=== PATIENT | male | born 1935 | race Hispanic/Latino ===

== ENCOUNTER 2018-08-28 08:24 | Day surgery (SDC) | payer MEDICARE ==
[2018-08-28 08:24] VITALS: BMI 31.6
[2018-08-28 08:41] VITALS: RESP 20
[2018-08-28] MEDS ORDERED: Sodium Chloride 0.9% 1,000 ML IV ONE (09:23)
[2018-08-28] MEDS ORDERED: Sodium Chloride 0.9% 1,000 ML ONE (09:39)
[2018-08-28 10:09] LABS: BASO % 0.5 % (0.0-2.0); EOS # 0.2 K/uL (0.0-0.7); EOS % 3.8 % (0.0-4.0); HEMOGLOBIN 10.7 g/dL (12.0-18.0); LYMPH # 1.2 K/uL (1.0-4.3); MEAN CORPUSCULAR HEMOGLOBIN 34.9 pg (27.0-31.0); MEAN CORPUSCULAR HGB CONC 32.6 g/dL (33.0-37.0); MEAN PLATELET VOLUME 7.6 fL (7.2-11.7); MONO # 0.5 K/uL (0.0-0.8); MONO % 7.7 % (0.0-10.0); NRBC % 0.1 % (0.0-2.0); RBC 3.07 Mil/uL (4.40-5.90); RED CELL DISTRIBUTION WIDTH 14.1 % (11.5-14.5); WHITE BLOOD COUNT 5.9 K/uL (4.8-10.8)
[2018-08-28 10:12] LABS: SQUAMOUS EPITHIAL 1 /hpf (0-5); URINE BILIRUBIN NEGATIVE (NEGATIVE); URINE BLOOD 3+ (NEGATIVE); URINE CLARITY Hazy (Clear); URINE COLOR Yellow (YELLOW); URINE GLUCOSE (UA) NORMAL (Normal); URINE LEUKOCYTE ESTERASE TRACE Leu/uL (Negative); URINE PROTEIN 1+ mg/dL (NEGATIVE); URINE UROBILINOGEN NORMAL mg/dL (0.2-1.0)
[2018-08-28 10:14] LABS: MEAN CELL VOLUME 107.2 fL (80.0-94.0)
[2018-08-28 10:18] LABS: INR 1.1; PROTHROMBIN TIME 11.5 SECONDS (9.7-12.2)
[2018-08-28 10:27] LABS: ALB/GLOB RATIO 1.4 (1.0-2.1); ALBUMIN 4.1 g/dL (3.5-5.0); CALCIUM 9.4 mg/dl (8.6-10.4)
[2018-08-28] MEDS ORDERED: Iohexol 300 100 ML IJ ONE (10:33)
[2018-08-28 10:36] LABS: CK-MB 1.11 ng/mL (0.0-3.38); TROPONIN I 0.037 ng/mL (0.00-0.120)
[2018-08-28 11:25] VITALS: PULSE 86; TEMP 97.9; O2SAT 98
--- NOTE | 2018-08-28 11:40 | RAD ---
Date of service: 08/28/2018 HISTORY: Shortness of breath COMPARISON: 05/29/2016. TECHNIQUE: Chest PA and lateral FINDINGS: LINES AND TUBES: None. LUNG AND PLEURA: The lungs are well inflated. No pleural effusion or pneumothorax. HEART AND MEDIASTINUM: Persistent moderate cardiomegaly. Status post CABG. There are aortic atherosclerotic calcifications present. The hilar and mediastinal contours are within normal limits. SKELETAL STRUCTURES: The bony structures are within normal limits for the patient's age. VISUALIZED UPPER ABDOMEN: Normal. OTHER FINDINGS: None. IMPRESSION: No active pulmonary disease.
[2018-08-28] MEDS ORDERED: Iohexol 240 (50 ml) ONE (12:06)
[2018-08-28] MEDS ORDERED: Lidocaine 2% Jelly (Uro-Jet) ONE (12:06)
--- NOTE | 2018-08-28 12:11 | C.PDOC ---
History Of Present Illness 83 year old male is sent to the ED by Dr. Capellan for evaluation of hematuria. Patient reports history of intermittent hematuria for the past month. He states the most recent episode developed last week and have been "pretty profuse" over the past few days. Patient denies fever, chills, nausea, vomiting, back pain, recent catheter insertion or procedures, known trauma/injuries. Time Seen by Provider: 08/28/18 08:33 Chief Complaint (Nursing): Male Genitourinary History Per: Patient History/Exam Limitations: no limitations Onset/Duration Of Symptoms: Intermittent Episodes, Other (one week ) Current Symptoms Are (Timing): Worse Quality Of Discomfort: "Pain" Associated Symptoms: Urinary Symptoms (hematuria ). denies: Nausea, Vomiting, Back Pain Additional History Per: Patient Past Medical History Reviewed: Historical Data, Nursing Documentation, Vital Signs Vital Signs: Last Vital Signs Temp 97.9 F 08/28/18 11:23 Pulse 86 08/28/18 11:23 Resp 20 08/28/18 08:30 BP 170/91 H 08/28/18 11:23 Pulse Ox 98 08/28/18 11:23 - Medical History PMH: HTN, Hypercholesterolemia Denies: Chronic Kidney Disease Surgical History: CABG - [facility] Procedures CYSTOSCOPY NEC (03/31/14) RETROGRADE PYELOGRAM (03/31/14) TU DESTRUC BLADD LES NEC (03/31/14) URETERAL CATHETERIZATION (03/31/14) Family History: States: Unknown Family Hx - Social History Hx Tobacco Use: No Hx Alcohol Use: Yes Hx Substance Use: No - Immunization History Hx Tetanus Toxoid Vaccination: No Hx Influenza Vaccination: No Hx Pneumococcal Vaccination: No Review Of Systems Constitutional: Negative for: Fever, Chills Gastrointestinal: Negative for: Nausea, Vomiting Genitourinary: Positive for: Hematuria Musculoskeletal: Negative for: Back Pain Physical Exam - Physical Exam Appears: Non-toxic, No Acute Distress Skin: Normal Color, Warm, Dry Oral Mucosa: Moist Neck: Supple Gastrointestinal/Abdominal: Soft, No Tenderness, No Guarding, No Rebound Back: No CVA Tenderness Extremity: Normal ROM, Capillary Refill (less than 2 seconds) Neurological/Psych: Normal Speech, Normal Cognition ED Course And Treatment - Laboratory Results Result Diagrams: 08/28/18 09:25 08/28/18 09:25 Lab Results: PT 11.5 SECONDS (9.7-12.2) 08/28/18 09:25 INR 1.1 08/28/18 09:25 APTT 31 SECONDS (21-34) 08/28/18 09:25 Troponin I 0.0370 ng/mL (0.00-0.120) 08/28/18 09:25 NT-Pro-B Natriuret Pep 1330 pg/mL (0-900) H 08/28/18 09:25 Total Bilirubin 0.5 mg/dL (0.2-1.3) 08/28/18 09:25 AST 31 U/L (17-59) 08/28/18 09:25 ALT 14 U/L (21-72) L D 08/28/18 09:25 Alkaline Phosphatase 91 U/L (38-126) 08/28/18 09:25 Total Protein 7.0 g/dL (6.3-8.3) 08/28/18 09:25 Albumin 4.1 g/dL (3.5-5.0) 08/28/18 09:25 Globulin 2.9 gm/dL (2.2-3.9) 08/28/18 09:25 Albumin/Globulin Ratio 1.4 (1.0-2.1) 08/28/18 09:25 Urine Color Yellow (YELLOW) 08/28/18 09:25 Urine Clarity Hazy (Clear) 08/28/18 09:25 Urine pH 5.0 (5.0-8.0) 08/28/18 09:25 Ur Specific [place] 1.016 (1.003-1.030) 08/28/18 09:25 Urine Protein 1+ mg/dL (NEGATIVE) H 08/28/18 09:25 Urine Glucose (UA) Normal mg/dL (Normal) 08/28/18 09:25 Urine Ketones Negative mg/dL (NEGATIVE) 08/28/18 09:25 Urine Blood 3+ (NEGATIVE) H 08/28/18 09:25 Urine Nitrate Negative (NEGATIVE) 08/28/18 09:25 Urine Bilirubin Negative (NEGATIVE) 08/28/18 09:25 Urine Urobilinogen Normal mg/dL (0.2-1.0) 08/28/18 09:25 Ur Leukocyte Esterase Trace Sol/uL (Negative) 08/28/18 09:25 Urine WBC (Auto) 30 /hpf (0-5) H 08/28/18 09:25 Urine RBC (Auto) 598 /hpf (0-3) H 08/28/18 09:25 Ur Squamous Epith Cells 1 /hpf (0-5) 08/28/18 09:25 ECG: Interpreted By Me, Viewed By Me ECG Rhythm: Sinus Rhythm, R BBB Interpretation Of ECG: SR@65/min, sinus arrythmia, incomplete RBBB, no acute ST- T changes Rate From EC O2 Sat by Pulse Oximetry: 98 (on RA) Pulse Ox Interpretation: Normal - Radiology CXR: Read By Radiologist CXR Interpretation: Yes: No Acute Disease - CT Scan/US CT A/P Other Rad Studies (CT/US): Radiology Report Reviewed CT/US Interpretation: Creator : Yomaira Mendez. Dictator : Denis Sahni MD. Frame Cleaner : Patient Access Manager : Denis Sahni MD. Approver2 : Report Date : 08/28/2018 12:06:16. My Comment : . Date of service: 08/28/2018. PROCEDURE: CT Abdomen and Pelvis without intravenous contrast. HISTORY: abd. pain, hematuria. COMPARISON: 05/30/2016. TECHNIQUE: Technique. Contrast dose: Radiation dose: Total exam DLP = 1057.67 mGy-cm. This CT exam was performed using one or more of the following dose reduction techniques: Automated exposure control, adjustment of the mA and/or kV according to patient size, and/or use of iterative reconstruction technique. FINDINGS: LOWER THORAX: Unremarkable. LIVER: Unremarkable. No gross lesion or ductal dilatation. GALLBLADDER AND BILE DUCTS: Unremarkable. PANCREAS: Unremarkable. No gross lesion or ductal dilatation. SPLEEN: Unremarkable. ADRENALS: Unremarkable. No mass. KIDNEYS AND URETERS: Distended left renal pelvis and proximal left ureter with abundant internal hemorrhagic material. VASCULATURE: Unremarkable. No aortic aneurysm. No aortic atherosclerotic calcification or mural plaque present. BOWEL: Colonic diverticulosis. No obstruction. No gross mural thickening. APPENDIX: Unremarkable. Normal appendix. PERITONEUM: Unremarkable. No free fluid. No free air. LYMPH NODES: Unremarkable. No enlarged lymph nodes. BLADDER: Unremarkable. REPRODUCTIVE: Brachytherapy seeds in the prostate gland. BONES: No acute fracture. OTHER FINDINGS: None. IMPRESSION: Distended left renal pelvis and proximal left ureter with abundant internal hemorrhagic material. Progress Note: Bloodwork, urinalysis, CXR, EKG, CT A/P ordered and reviewed. IV fluids given. Case discussed with and admission to OR request. NPO. Disposition - Disposition Disposition: HOSPITALIZED Disposition Time: 11:00 Condition: STABLE - Clinical Impression Clinical Impression: Hematuria - PA / COUNTY MANAGER / Resident Statement MD/DO has reviewed & agrees with the documentation as recorded. - Scribe Statement The provider has reviewed the documentation as recorded by the Scribe (Sagrario Neal) All medical record entries made by the Scribe were at my direction and personally dictated by me. I have reviewed the chart and agree that the record accurately reflects my personal performance of the history, physical exam, medical decision making, and the department course for this patient. I have also personally directed, reviewed, and agree with the discharge instructions and disposition.
[2018-08-28] MEDS ORDERED: Ciprofloxacin 400mg/200ml D5W 0 MG/0 ML BAG IVPB ONE (12:16)
--- NOTE | 2018-08-28 12:26 | CT ---
Date of service: 08/28/2018 PROCEDURE: CT Abdomen and Pelvis without intravenous contrast HISTORY: abd. pain, hematuria COMPARISON: 05/30/2016 TECHNIQUE: Technique. Contrast dose: Radiation dose: Total exam DLP = 1057.67 mGy-cm. This CT exam was performed using one or more of the following dose reduction techniques: Automated exposure control, adjustment of the mA and/or kV according to patient size, and/or use of iterative reconstruction technique. FINDINGS: LOWER THORAX: Unremarkable. LIVER: Unremarkable. No gross lesion or ductal dilatation. GALLBLADDER AND BILE DUCTS: Unremarkable. PANCREAS: Unremarkable. No gross lesion or ductal dilatation. SPLEEN: Unremarkable. ADRENALS: Unremarkable. No mass. KIDNEYS AND URETERS: Distended left renal pelvis and proximal left ureter with abundant internal hemorrhagic material. VASCULATURE: Unremarkable. No aortic aneurysm. No aortic atherosclerotic calcification or mural plaque present. BOWEL: Colonic diverticulosis. No obstruction. No gross mural thickening. APPENDIX: Unremarkable. Normal appendix. PERITONEUM: Unremarkable. No free fluid. No free air. LYMPH NODES: Unremarkable. No enlarged lymph nodes. BLADDER: Unremarkable. REPRODUCTIVE: Brachytherapy seeds in the prostate gland. BONES: No acute fracture. OTHER FINDINGS: None. IMPRESSION: Distended left renal pelvis and proximal left ureter with abundant internal hemorrhagic material.
[2018-08-28 13:51] VITALS: BP 160/67
--- NOTE | 2018-08-31 01:07 | HP ---
HISTORY OF PRESENT ILLNESS: The patient is an 83-year-old male with hematuria. The patient is in otherwise fair health. The patient has history of bladder cancer diagnosed in 2013. The patient had previous transurethral resection of bladder cancer. The patient did not have regular followup at that time. He subsequently developed hematuria again. He had no recurrence of bladder cancer in 2016. The patient has not been seen since 2017. The patient presented this week with gross hematuria. He reports intermittent hematuria for the past six months. The patient reports no flank pain. No nausea or vomiting. The patient has had normal appetite. He reports normal bowel movements. No recent weight loss. PAST MEDICAL HISTORY: The patient has significant past urologic as well as past cardiac history as follows. The patient has history of previous prostate seed implantation and external beam radiotherapy performed in 2004, for prostate carcinoma. The patient has history of previous urinary tract infection as well. The patient has history of aortic valve replacement, using valve, not a mechanical valve. The patient has history of coronary artery bypass graft and aortic valve replacement in 2011. The patient reports occasional dysuria. No fever or rigors. The patient reports that he has a history of possible kidney stones 20 years ago. The patient presented to the emergency room this morning. He is admitted for further evaluation of therapy regarding his hematuria. MEDICATIONS: Include meloxicam and Ativan. SOCIAL HISTORY: The patient does not smoke. He reports that he stopped smoking approximately 50 years ago. The patient reports urinary incontinence as well. No recent fever or rigors. The patient has history of chronic kidney disease. He reports his creatinines have been over 3. The patient reports no chest pain. No shortness of breath. The patient has had two-vessel coronary artery bypass. The patient lives with his son. [place] a [place]. The patient reports that since yesterday, he has had numerous difficult social problems including his sons being arrested, his car being impounded. The patient does not drink alcohol. The patient is retired. PHYSICAL EXAMINATION: GENERAL: The patient is a well-developed, well-nourished elderly male. The patient is awake and alert. VITAL SIGNS: Blood pressure is 110/80. LUNGS: Clear to percussion and auscultation. HEART: Regular rhythm, normal S1 and S2. ABDOMEN: Soft, nondistended. There is mild suprapubic tenderness. No mass or organomegaly. BACK: No CVA tenderness. GENITALIA: Without inflammation. LABORATORY DATA: See attached reports. Anemia is noted. Azotemia is noted. CAT scan reports left hydronephrosis with hematuria. IMPRESSION: An 83-year-old male with gross hematuria. Etiology of the hematuria may be related to neoplasia, infection, and/or urolithiasis. The patient has cardiac disease as noted above. RECOMMENDATION AND PLAN: Urine culture. Urine cytology CT scan. Cystoscopy. ADDENDUM: The patient was prepared for and brought to the holding area of the operating room for planned cystoscopy. However, due to the patient's medical condition, the cystoscopy is postponed. The patient requires further cardiologic evaluation. The case has been discussed with the anesthesiologist. The patient will need further medical and cardiology evaluation prior to the procedure. The patient reports that the hematuria stopped this morning. If the bleeding returns, the patient will require cystoscopy on an emergent basis. Further therapy to follow according to the patient's clinical course. Karma Capellan MD
== END 2018-08-28 14:19 | disposition home or self-care (01) ==
LOC: C.ER 08:24 → C.SDS 11:13
PROVIDERS: ATTEND Urology
DX: Z53.8 Procedure and treatment not carried out for other reasons (principal); R31.0 Gross hematuria; Z85.46 Personal history of malignant neoplasm of prostate; Z87.891 Personal history of nicotine dependence; N18.9 Chronic kidney disease, unspecified; Z79.899 Other long term (current) drug therapy; I12.9 Hypertensive chronic kidney disease with stage 1 through stage 4 chronic kidney disease, or unspecified chronic kidney disease; E78.00 Pure hypercholesterolemia, unspecified
CPT/HCPCS: 36415; 71046; 74176; 80053; 81001; 82550; 82553; 83880; 84484; 85025; 85610; 85730; 87040; 87086; 96360; 99285; J7030

== ENCOUNTER → 2018-09-16 | Day surgery (SDC) | payer MEDICARE ==
[~2018-09-16] MED LIST: Sodium Chloride 0.9% 1,000 ML IV SCH
[2018-09-16 07:24] VITALS: BMI 31.6
--- NOTE | 2018-09-16 07:48 | C.PDOC ---
History Of Present Illness 83 y/o male is sent by Dr. Cristhian Capellan for a procedure. Patient states hes been having blood in his urine for the past [address] Capellan thinks he might have cancer and might need cystoscopy. Patient has no other medical complaints at this time. Time Seen by Provider: 09/16/18 07:31 Chief Complaint (Nursing): Male Genitourinary History Per: Patient History/Exam Limitations: no limitations Onset/Duration Of Symptoms: Days Current Symptoms Are (Timing): Still Present Past Medical History Reviewed: Historical Data, Nursing Documentation, Vital Signs Vital Signs: Last Vital Signs Temp 97.6 F 09/16/18 07:28 Pulse 89 09/16/18 07:28 Resp 18 09/16/18 07:28 BP 184/91 H 09/16/18 07:28 Pulse Ox 98 09/16/18 07:28 - Medical History PMH: HTN, Hypercholesterolemia Denies: Chronic Kidney Disease Surgical History: CABG - [facility] Procedures CYSTOSCOPY NEC (03/31/14) RETROGRADE PYELOGRAM (03/31/14) TU DESTRUC BLADD LES NEC (03/31/14) URETERAL CATHETERIZATION (03/31/14) Family History: States: No Known Family Hx - Social History Hx Tobacco Use: No Hx Alcohol Use: Yes Hx Substance Use: No - Immunization History Hx Tetanus Toxoid Vaccination: No Hx Influenza Vaccination: No Hx Pneumococcal Vaccination: No Review Of Systems Except As Marked, All Systems Reviewed And Found Negative. Constitutional: Negative for: Fever, Chills Gastrointestinal: Negative for: Nausea, Vomiting Genitourinary: Positive for: Hematuria Musculoskeletal: Negative for: Back Pain Physical Exam - Physical Exam Appears: Non-toxic, No Acute Distress Skin: Warm, Dry Head: Atraumatic, Normacephalic Eye(s): bilateral: Normal Inspection Oral Mucosa: Moist Neck: Supple Cardiovascular: Rhythm Regular, No Murmur Respiratory: Normal Breath Sounds, No Rales, No Rhonchi, No Wheezing Extremity: Bilateral: Atraumatic, Normal ROM Neurological/Psych: Oriented x3, Normal Speech ED Course And Treatment - Laboratory Results Result Diagrams: 09/16/18 08:07 09/16/18 08:07 Lab Interpretation: Normal ECG: Interpreted By Ar ECG Rhythm: Sinus Rhythm, Nonspecific Changes ECG Interpretation: No Acute Changes Rate From EC O2 Sat by Pulse Oximetry: 98 (RA) Pulse Ox Interpretation: Normal - Radiology CXR: Interpreted by Me CXR Interpretation: Yes: No Acute Disease - Other Rad CXR X-Ray: Read By Radiologist Interpretation: FINDINGS: LUNGS: Mild left basilar atelectasis/infiltrate. 5 mm left upper lobe calcified granuloma verses bone island. Please note that chest x-ray has limited sensitivity for the detection of pulmonary masses. PLEURA: No significant pleural effusion identified. No definite pneumothorax . CARDIOVASCULAR: Median sternotomy wires. Borderline cardiomegaly. Ectatic aorta with dense atherosclerotic calcification present. OSSEOUS STRUCTURES: Degenerative changes. VISUALIZED UPPER ABDOMEN: Mild elevation of the right hemidiaphragm. OTHER FINDINGS: None. IMPRESSION: Borderline cardiomegaly. Ectatic aorta with atherosclerotic calcification present. Mild left basilar atelectasis/infiltrate. Progress Note: Treated with IVF NSS. Case discussed and patient evaluated by Dr Capellan whp request discharge and will re-schedule OR Reassessment Condition: Unchanged - Physician Consult Information Physician Contacted: Karma Capellan Outcome Of Conversation: discharge Medical Decision Making Medical Decision Making: Plan: --EKG --Labs --Chest XR --UA --IV fluids 1L Disposition Discussed With Dr.: Karma Capellan Doctor Will See Patient In The: Office Counseled Patient/Family Regarding: Studies Performed, Diagnosis, Need For Followup - Disposition Disposition: HOME/ ROUTINE Disposition Time: 15:00 Condition: STABLE - POA Present On Arrival: None - Clinical Impression Clinical Impression: Hematuria - PA / IRRIGATIONIST DESIGNER / Resident Statement MD/DO has reviewed & agrees with the documentation as recorded. - Scribe Statement The provider has reviewed the documentation as recorded by the Scribmare Shea All medical record entries made by the Cely were at my direction and personally dictated by me. I have reviewed the chart and agree that the record accurately reflects my personal performance of the history, physical exam, medical decision making, and the department course for this patient. I have also personally directed, reviewed, and agree with the discharge instructions and disposition.
[2018-09-16 08:21] LABS: BASO # 0.1 K/uL (0.0-0.2); BASO % 0.9 % (0.0-2.0); EOS # 0.3 K/uL (0.0-0.7); EOS % 4.6 % (0.0-4.0); HEMOGLOBIN 12.3 g/dL (12.0-18.0); LYMPH % 18.6 % (20.0-40.0); MEAN CELL VOLUME 107.7 fL (80.0-94.0); MEAN CORPUSCULAR HEMOGLOBIN 36.6 pg (27.0-31.0); MEAN PLATELET VOLUME 7.8 fL (7.2-11.7); MONO # 0.4 K/uL (0.0-0.8); NEUT # 3.8 K/uL (1.8-7.0); NEUT % 68.9 % (50.0-75.0); NRBC % 0.1 % (0.0-2.0); RBC 3.35 Mil/uL (4.40-5.90); RED CELL DISTRIBUTION WIDTH 14.8 % (11.5-14.5); WHITE BLOOD COUNT 5.5 K/uL (4.8-10.8)
[2018-09-16 08:25] LABS: URINE BACTERIA OCC (<OCC); URINE BILIRUBIN NEGATIVE (NEGATIVE); URINE BLOOD 3+ (NEGATIVE); URINE CLARITY Hazy (Clear); URINE COLOR Amber (YELLOW); URINE GLUCOSE (UA) NORMAL (Normal); URINE LEUKOCYTE ESTERASE NEG Leu/uL (Negative); URINE PROTEIN 1+ mg/dL (NEGATIVE); URINE UROBILINOGEN NORMAL mg/dL (0.2-1.0)
[2018-09-16 08:26] LABS: PROTHROMBIN TIME 11.4 SECONDS (9.7-12.2)
[2018-09-16 08:41] LABS: ALB/GLOB RATIO 1.7 (1.0-2.1); ALBUMIN 4.8 g/dL (3.5-5.0); CALCIUM 9.9 mg/dl (8.6-10.4)
[2018-09-16 10:43] VITALS: RESP 20
--- NOTE | 2018-09-16 11:07 | RAD ---
HISTORY: SOB COMPARISON: Chest xray performed 08/28/18 TECHNIQUE: Chest PA and lateral FINDINGS: LUNGS: Mild left basilar atelectasis/infiltrate. 5 mm left upper lobe calcified granuloma verses bone island. Please note that chest x-ray has limited sensitivity for the detection of pulmonary masses. PLEURA: No significant pleural effusion identified. No definite pneumothorax . CARDIOVASCULAR: Median sternotomy wires. Borderline cardiomegaly. Ectatic aorta with dense atherosclerotic calcification present. OSSEOUS STRUCTURES: Degenerative changes. VISUALIZED UPPER ABDOMEN: Mild elevation of the right hemidiaphragm. OTHER FINDINGS: None. IMPRESSION: Borderline cardiomegaly. Ectatic aorta with atherosclerotic calcification present. Mild left basilar atelectasis/infiltrate.
[2018-09-16 13:13] VITALS: BP 170/84; PULSE 82; TEMP 98.4
[2018-09-16 16:39] VITALS: O2SAT 98
--- NOTE | 2018-09-16 22:44 | PCM.URO ---
Urology Progress Note - Subjective Abdominal Pain: No Flank Pain: No Nausea: No Vomiting: No Voiding Well: Yes Dysuria: No Hematuria: Yes (Hematuria today, first recurrence in 2 weeks) [place]: Yes Dsypnea: No Chest Pain: No Fever & Chills: No - Objective Lab Results Last 24 Hours: Laboratory Results - last 24 hr 09/16/18 09/16/18 09/16/18 08:07 08:07 08:07 WBC 5.5 RBC 3.35 L Hgb 12.3 Hct 36.1 MCV 107.7 H MCH 36.6 H MCHC 34.0 RDW 14.8 H Plt Count 232 MPV 7.8 Neut % (Auto) 68.9 Lymph % (Auto) 18.6 L [place] % (Auto) 7.0 Eos % (Auto) 4.6 H Baso % (Auto) 0.9 Neut # (Auto) 3.8 Lymph # (Auto) 1.0 [place] # (Auto) 0.4 Eos # (Auto) 0.3 Baso # (Auto) 0.1 Differential Comment PT 11.4 INR 1.0 APTT 31 Sodium 137 Potassium 4.3 Chloride 103 Carbon Dioxide 25 Anion Gap 13 BUN 42 H Creatinine 3.2 H Est GFR ( Amer) 22 Est GFR (Non-Af Amer) 19 Random Glucose 98 Calcium 9.9 Total Bilirubin 1.6 H AST 36 ALT 10 L D Alkaline Phosphatase 85 Total Protein 7.7 Albumin 4.8 Globulin 2.9 Albumin/Globulin Ratio 1.7 Urine Color Urine Clarity Urine pH Ur Specific [place] Urine Protein Urine Glucose (UA) Urine Ketones Urine Blood Urine Nitrate Urine Bilirubin Urine Urobilinogen Ur Leukocyte Esterase Urine WBC (Auto) Urine RBC (Auto) Urine Bacteria Blood Type Antibody Screen 09/16/18 09/16/18 08:07 08:07 WBC RBC Hgb Hct MCV MCH MCHC RDW Plt Count MPV Neut % (Auto) Lymph % (Auto) [place] % (Auto) Eos % (Auto) Baso % (Auto) Neut # (Auto) Lymph # (Auto) [place] # (Auto) Eos # (Auto) Baso # (Auto) Differential Comment PT INR APTT Sodium Potassium Chloride Carbon Dioxide Anion Gap BUN Creatinine Est GFR ( Amer) Est GFR (Non-Af Amer) Random Glucose Calcium Total Bilirubin AST ALT Alkaline Phosphatase Total Protein Albumin Globulin Albumin/Globulin Ratio Urine Color [place] Urine Clarity Hazy Urine pH 5.0 Ur Specific [place] 1.015 Urine Protein 1+ H Urine Glucose (UA) Normal Urine Ketones Negative Urine Blood 3+ H Urine Nitrate Negative Urine Bilirubin Negative Urine Urobilinogen Normal Ur Leukocyte Esterase Neg Urine WBC (Auto) 53 H Urine RBC (Auto) 1222 H Urine Bacteria Occ H Blood Type O POSITIVE Antibody Screen Negative Intake & Output: Intake & Output 09/16/18 09/16/18 09/17/18 06:59 18:59 06:59 Weight 200 lb Vital Signs: Vital Signs - 24 hr 09/16/18 09/16/18 09/16/18 07:28 10:42 11:07 Temperature 97.6 F 98.4 F 98 F Pulse Rate 89 72 69 Respiratory 18 20 Rate Blood Pressure 184/91 H 169/92 H 173/89 H O2 Sat by Pulse 98 97 98 Oximetry 09/16/18 09/16/18 13:10 16:39 Temperature 98.4 F Pulse Rate 82 Respiratory 20 Rate Blood Pressure 170/84 H O2 Sat by Pulse 97 98 Oximetry - Physical Exam Abdominal Exam: Soft, Non-Tender, Non-Distended Back: No CVA Tenderness Genitalia: Without Inflammation - Plan Additional Information: IMP: Hematuria. Hx of bladder cancer. Abnormal CT scan re kidney/ureter. P: Pt was scehduled for cystoscopy. Pt had eaten this morning. As per anesthesiologist, surgery is postponed. Discussed w pt and hosp staff. - Date & Time of Note Date: 09/16/18 Time: 12:05
== END | disposition home or self-care (01) ==
LOC: C.ER 07:24 → C.SDS 10:00
PROVIDERS: ATTEND Urology
DX: R31.9 Hematuria, unspecified (principal); E78.00 Pure hypercholesterolemia, unspecified; I10 Essential (primary) hypertension; Z85.51 Personal history of malignant neoplasm of bladder; Z95.1 Presence of aortocoronary bypass graft; Z53.09 Procedure and treatment not carried out because of other contraindication
CPT/HCPCS: 71046; 80053; 81001; 85025; 85610; 85730; 86850; 86900; 93005; 96360; 96361; 99284; J7030

== ENCOUNTER 2018-09-23 07:56 | Day surgery (SDC) | payer MEDICARE ==
[2018-09-23 07:56] VITALS: BMI 31.6
--- NOTE | 2018-09-23 08:57 | C.PDOC ---
History Of Present Illness 83 y/o male,w/PMhx of bladder cancer and HTN, presents to the ER for evaluation of hematuria which began 6 months ago. Patient states that he had several episodes of hematuria in the past several weeks. Patient reports that he was evaluated by Dr. Cristhian Capellan. He had CT Scan which showed mass in kidney. Dr.Y Capellan referred him to the ER so he could have kidney biopsy today. He notes that his last meal was around 9 pm last night. Denies having fever,chills, abdominal pain, and dysuria. Time Seen by Provider: 09/23/18 08:01 Chief Complaint (Nursing): Male Genitourinary History Per: Patient History/Exam Limitations: no limitations Onset/Duration Of Symptoms: Days Current Symptoms Are (Timing): Still Present Severity: Moderate Past Medical History Reviewed: Historical Data, Nursing Documentation, Vital Signs Vital Signs: Last Vital Signs Temp 97.9 F 09/23/18 07:58 Pulse 73 09/23/18 07:58 Resp 18 09/23/18 07:58 BP 186/88 H 09/23/18 07:58 Pulse Ox 100 09/23/18 07:58 - Medical History PMH: HTN, Hypercholesterolemia Denies: Chronic Kidney Disease Surgical History: Appendectomy, CABG, Cholecystectomy, Tonsillectomy - [facility] Procedures CYSTOSCOPY NEC (03/31/14) RETROGRADE PYELOGRAM (03/31/14) TU DESTRUC BLADD LES NEC (03/31/14) URETERAL CATHETERIZATION (03/31/14) Family History: States: No Known Family Hx - Social History Hx Tobacco Use: No Hx Alcohol Use: Yes Hx Substance Use: No - Immunization History Hx Tetanus Toxoid Vaccination: No Hx Influenza Vaccination: No Hx Pneumococcal Vaccination: No Review Of Systems Except As Marked, All Systems Reviewed And Found Negative. Constitutional: Negative for: Fever, Chills Gastrointestinal: Negative for: Nausea, Vomiting, Abdominal Pain Genitourinary: Positive for: Hematuria. Negative for: Dysuria Physical Exam - Physical Exam Appears: Non-toxic, No Acute Distress, Other (comfortable) Skin: Warm, Dry, Ecchymosis (scattered ecchymosis to bilateral forearms) Head: Atraumatic, Normacephalic Eye(s): bilateral: Normal Inspection Nose: Normal Oral Mucosa: Moist Neck: Supple Chest: Symmetrical Cardiovascular: Rhythm Regular Respiratory: Normal Breath Sounds, No Rales, No Rhonchi, No Wheezing Gastrointestinal/Abdominal: Normal Exam, Soft, No Tenderness, No Guarding, No Rebound Neurological/Psych: Oriented x3, Normal Speech ED Course And Treatment ECG: Interpreted By Me, Viewed By Me (sinus bradycardia 59 bpm, left axis deviation, biphasic T waves III, aVF, V5-V6, no acute ST changes) ECG Interpretation: Abnormal O2 Sat by Pulse Oximetry: 100 (RA) Pulse Ox Interpretation: Normal - Radiology CXR: Interpreted by Me, Viewed By Me (left sided effusion?) CXR Interpretation: No: Infiltrates Progress Note: Blood work, EKG, CXR ordered and reviewed. Disposition - Disposition Disposition: HOSPITALIZED Condition: GOOD Forms: [facility] ([place]i) - Scribe Statement The provider has reviewed the documentation as recorded by the Basiaibmare Pfeiffer Provider Attestation: All medical record entries made by the Scribe were at my direction and personally dictated by me. I have reviewed the chart and agree that the record accurately reflects my personal performance of the history, physical exam, medical decision making, and the department course for this patient. I have also personally directed, reviewed, and agree with the discharge instructions and disposition.
[2018-09-23 09:17] LABS: BASO % 0.6 % (0.0-2.0); EOS # 0.2 K/uL (0.0-0.7); EOS % 4.7 % (0.0-4.0); HEMOGLOBIN 11.6 g/dL (12.0-18.0); LYMPH # 0.8 K/uL (1.0-4.3); LYMPH % 15.7 % (20.0-40.0); MEAN CELL VOLUME 108.2 fL (80.0-94.0); MEAN CORPUSCULAR HEMOGLOBIN 36.3 pg (27.0-31.0); MEAN CORPUSCULAR HGB CONC 33.5 g/dL (33.0-37.0); MEAN PLATELET VOLUME 8.3 fL (7.2-11.7); MONO # 0.4 K/uL (0.0-0.8); MONO % 7.4 % (0.0-10.0); NEUT # 3.7 K/uL (1.8-7.0); NEUT % 71.6 % (50.0-75.0); NRBC % 0.1 % (0.0-2.0); RBC 3.19 Mil/uL (4.40-5.90); RED CELL DISTRIBUTION WIDTH 14.4 % (11.5-14.5); WHITE BLOOD COUNT 5.2 K/uL (4.8-10.8)
[2018-09-23 09:25] LABS: INR 1.1; PROTHROMBIN TIME 11.7 SECONDS (9.7-12.2)
[2018-09-23 09:34] LABS: ALB/GLOB RATIO 1.5 (1.0-2.1); ALBUMIN 4.2 g/dL (3.5-5.0); CALCIUM 9.8 mg/dl (8.6-10.4)
[2018-09-23] MEDS ORDERED: cefTRIAXone 1 gm 0 GM/0 ML BAG IVPB ONE (10:14)
[2018-09-23] MEDS ORDERED: Lidocaine 2% Jelly (Uro-Jet) ONE (10:15)
[2018-09-23] MEDS ORDERED: Propofol 10 mg/ml Inj (20 ML) ONE (10:19)
[2018-09-23] MEDS ORDERED: Ciprofloxacin 400mg/200ml D5W 400 MG/200 ML BAG IVPB ONE (10:26)
[2018-09-23] MEDS ORDERED: Gentamicin 80 mg in 0.9% NS 0 MG/0 ML BAG IVPB ONE (10:27)
[2018-09-23] MEDS ORDERED: Iohexol 240 (50 ml) ONE (10:27)
--- NOTE | 2018-09-23 10:30 | RAD ---
Date of service: 09/23/2018 HISTORY: PREOP COMPARISON: None available. TECHNIQUE: 1 view obtained. FINDINGS: LUNGS: No acute air space disease. Diminished inspiratory volume noted. PLEURA: No significant pleural effusion identified, no pneumothorax apparent. CARDIOVASCULAR: Calcific atherosclerotic changes are seen related to the thoracic aorta. Normal cardiac size. No pulmonary vascular congestion. Post CABG changes reiterated OSSEOUS STRUCTURES: No significant abnormalities. VISUALIZED UPPER ABDOMEN: Normal. OTHER FINDINGS: None. IMPRESSION: No acute air space disease. Diminished inspiratory volume noted. No acute cardiovascular disease.
--- NOTE | 2018-09-23 11:31 | PCM.SURG1 ---
Surgeon's Initial Post Op Note - Surgeon's Notes Surgeon: Cristhian Capellan Director Sterile Processing: none Type of Anesthesia: General LMA Pre-Operative Diagnosis: hematuria,bladder ca, abnormal L kidney Operative Findings: same Post-Operative Diagnosis: same Operation Performed: cysto. bilat rtg pyelogram. L uretroscopy, stent insertion. turbt. EUA Specimen/Specimens Removed: urine. bladder tumor Estimated Blood Loss: EBL {In ML}: 50 Blood Products Given: N/A Post-Op Condition: Good Date of Surgery/Procedure: 09/23/18 Time of Surgery/Procedure: 11:30
[2018-09-23] MEDS ORDERED: HYDROmorphone 0.5 mg/0.5 ml ISec IVP PRN (11:40)
[2018-09-23 12:03] VITALS: TEMP 97.4
[2018-09-23 12:55] VITALS: O2SAT 100
[2018-09-23 14:17] VITALS: PULSE 65; RESP 11
[2018-09-23 15:33] VITALS: BP 146/79
--- NOTE | 2018-09-24 05:13 | OP ---
PROCEDURE DATE: 09/23/2018 PREOPERATIVE DIAGNOSIS: Hematuria. POSTOPERATIVE DIAGNOSES: 1. Hematuria. 2. 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 PROCEDURE: Cystoscopy, bilateral retrograde pyelogram, left ureteroscopy, insertion of left ureteral stent, transurethral resection of bladder tumor, exam under anesthesia. SURGEON: Karma Capellan MD DESCRIPTION OF PROCEDURE: As follows: The patient received perioperative antibiotics. The patient was placed in lithotomy position. Anesthesia was provided by the anesthesiologist. The genitalia was prepped and draped in a sterile fashion. A 22-Malian cystoscope sheath was introduced under video endoscopic control. The urethra, prostate, and bladder were inspected. There was noted to be a stricture of the urethra which was dilated by passage of cystoscope sheath. The urethra, prostate, and bladder were inspected with 30 degree and 70 degree lenses. FINDINGS: The anterior urethra demonstrated stricture, which was dilated. The prostatic urethra was nonocclusive. There was no contracture of the bladder neck. There was paleness of the prostatic urethral mucosa. There was moderate bladder tuberculation. The ureteral orifices were identified. The right ureteral orifice was normal. The left ureteral orifice was laterally displaced. There was an approximately 2 cm papillary bladder tumor located on the posterior wall at the midline. There was no bladder diverticulum. Retrograde ureteropyelogram was performed. Iodinated contrast dye was instilled via cone-tip catheter into each ureteral orifice. The ureters and the kidneys were viewed sequentially. Left retrograde pyelogram was abnormal. There was irregularity and filling defect, filling the upper ureter and the renal pelvis. There was hydrocalyces noted in the mid and upper calyces lateral to the irregular filling defect, which was outlined with contrast as well. The right retrograde pyelogram demonstrated no evidence of filling defect or obstruction within the ureters or collecting system. There was good drainage on the post drainage film. A 0.035 guidewire was inserted into the left ureteral orifice and passed up to the level of kidney. A second guidewire was inserted with the aid of a double lumen ureteral catheter. Ureteroscopy was performed. The ureteroscope was inserted over the working wire. The ureteroscope was able to be advanced up to the level of the mid ureter. However, the ureteroscope cannot be advanced into the proximal ureter and cannot be advanced up to the level of kidney. A 6-Malian multi-length stent was then inserted over the remaining guidewire into the kidney. Proper stent position was confirmed with fluoroscopy and endoscopy. The cystoscope and sheath were removed. A 26-Malian continuous flow resectoscope was inserted. This required further dilation of the ureter by passage of resectoscope. The tumor on the posterior wall was resected. Fulguration was performed with Ball electrode and electrocautery. Tumor appeared to be superficial and well-differentiated without invasion. The bladder was reinspected. Hemostasis was completed. The stent was in proper position. The resectoscope and sheath were removed. Melgar catheter was inserted. Exam under anesthesia was performed. There was no abnormal pelvic mass fixation or induration. The prostate was firm and flat, approximately 15 g in size. There was no bladder mass palpable. There was mild hematuria via the Melgar catheter, which cleared with irrigation. The patient was returned to supine position. The patient tolerated the procedure without complication. Karma Capellan MD
--- NOTE | 2018-09-24 09:30 | RAD ---
PROCEDURE: HISTORY: As above COMPARISON: None TECHNIQUE: Total fluoroscopic time utilized during the procedure: 31.7 seconds ; 0.68562 mGy cm 2 FINDINGS: Submitted images from the current procedure: 11 Please refer to the physician's notes performing the procedure. IMPRESSION: Less than 1 hour fluoroscopic time utilized during performance of the procedure
--- NOTE | 2018-09-24 12:46 | CARD ---
APPROVED REPORT Date of service: 09/23/2018 EKG Measurement Heart [id number] <Conclusion> Sinus bradycardia Minimal voltage criteria for LVH, may be normal variant IVCD Nonspecific T wave abnormality Abnormal ECG
--- NOTE | 2018-09-24 15:41 | RAD ---
Date of service: 09/23/2018 HISTORY: BLADDER CA. AND HEMATURIA COMPARISON: None available. TECHNIQUE: 1 view obtained. FINDINGS: BOWEL: No bowel obstruction appreciated Transitional elements at the lumbosacral junction and a rudimentary are right T12 rib is noted. Diffuse thoraco lumbar spondylosis. Bilateral hip arthrosis present. Bilateral mild sacroiliac sclerotic arthrosis. Pubic symphysis unremarkable. Prostate radiation seeds in place. No gross urolithiasis apparent. No markedly distended bladder seen. BONES: As above. OTHER FINDINGS: None. IMPRESSION: No urolithiasis appreciated. Other findings as above.
== END 2018-09-23 16:02 | disposition home or self-care (01) ==
LOC: C.SDS 07:56 → C.ER 07:56 → C.SDS 09:48
PROVIDERS: ATTEND Urology
DX: C67.9 Malignant neoplasm of bladder, unspecified (principal); I10 Essential (primary) hypertension
CPT/HCPCS: 52005; 52332; 71045; 74018; 80053; 85025; 85610; 85730; 86850; 86900; 87086; 88104; 88305; 93005; 99285; A4322; C1725; C1769; J0696; J0744; J1170

== ENCOUNTER 2018-10-14 07:16 | Day surgery (SDC) | payer MEDICARE ==
[2018-10-14 07:16] VITALS: BMI 31.6
--- NOTE | 2018-10-14 08:20 | C.PDOC ---
History Of Present Illness 83 y/o male presents to the ER upon referral of Dr.Yale Capellan for left kidney biopsy . Patient states that he had CT Scan which showed mass in the left kidney.Currently, patient denies having fever,chills, abdominal staton, flank pain, dysuria, and hematuria. Time Seen by Provider: 10/14/18 07:38 Chief Complaint (Nursing): Medical Clearance History Per: Patient History/Exam Limitations: no limitations Onset/Duration Of Symptoms: Days Current Symptoms Are (Timing): Still Present Severity: Moderate Past Medical History Reviewed: Historical Data, Nursing Documentation, Vital Signs Vital Signs: Last Vital Signs Temp 98 F 10/14/18 07:21 Pulse 81 10/14/18 07:21 Resp 20 10/14/18 07:21 BP 181/97 H 10/14/18 07:21 Pulse Ox 99 10/14/18 07:21 Primary Care Provider: Kelsea Fox - Medical History PMH: HTN, Hypercholesterolemia Denies: Chronic Kidney Disease Surgical History: Appendectomy, CABG, Cholecystectomy, Tonsillectomy - [facility] Procedures CYSTOSCOPY NEC (03/31/14) RETROGRADE PYELOGRAM (03/31/14) TU DESTRUC BLADD LES NEC (03/31/14) URETERAL CATHETERIZATION (03/31/14) Family History: States: No Known Family Hx - Social History Hx Tobacco Use: No Hx Alcohol Use: Yes Hx Substance Use: No - Immunization History Hx Tetanus Toxoid Vaccination: No Hx Influenza Vaccination: No Hx Pneumococcal Vaccination: No Review Of Systems Except As Marked, All Systems Reviewed And Found Negative. Constitutional: Negative for: Fever, Chills Gastrointestinal: Negative for: Abdominal Pain Genitourinary: Negative for: Dysuria, Hematuria Physical Exam - Physical Exam Appears: Non-toxic, No Acute Distress Skin: Normal Color, Warm, Dry Head: Atraumatic, Normacephalic Eye(s): bilateral: Normal Inspection Nose: Normal Oral Mucosa: Moist Neck: Supple Chest: Symmetrical Cardiovascular: Rhythm Regular Respiratory: Normal Breath Sounds, No Rales, No Rhonchi, No Wheezing Gastrointestinal/Abdominal: Normal Exam, Soft, No Tenderness, No Guarding, No Rebound Neurological/Psych: Oriented x3, Normal Speech ED Course And Treatment - Laboratory Results Result Diagrams: 10/14/18 08:54 O2 Sat by Pulse Oximetry: 99 (RA) Pulse Ox Interpretation: Normal Progress Note: Labs ordered. - Physician Consult Information Physician Contacted: Karma Capellan Outcome Of Conversation: Discussed patient with his urologist, patient to have cystoscopy today in OR. Disposition - Disposition Disposition: HOSPITALIZED Condition: GOOD - Scribe Statement The provider has reviewed the documentation as recorded by the Scribe Kevin Pfeiffer Provider Attestation: All medical record entries made by the Scribe were at my direction and p ersonally dictated by me. I have reviewed the chart and agree that the record accurately reflects my personal performance of the history, physical exam, medical decision making, and the department course for this patient. I have also personally directed, reviewed, and agree with the discharge instructions and disposition.
[2018-10-14 09:03] LABS: BASO % 0.3 % (0.0-2.0); EOS # 0.2 K/uL (0.0-0.7); EOS % 4.1 % (0.0-4.0); HEMOGLOBIN 10.7 g/dL (12.0-18.0); LYMPH # 0.9 K/uL (1.0-4.3); LYMPH % 17.7 % (20.0-40.0); MEAN CORPUSCULAR HEMOGLOBIN 36.5 pg (27.0-31.0); MEAN CORPUSCULAR HGB CONC 34.1 g/dL (33.0-37.0); MEAN PLATELET VOLUME 7.8 fL (7.2-11.7); MONO # 0.4 K/uL (0.0-0.8); MONO % 7.8 % (0.0-10.0); NEUT # 3.7 K/uL (1.8-7.0); NEUT % 70.1 % (50.0-75.0); RBC 2.95 Mil/uL (4.40-5.90); WHITE BLOOD COUNT 5.3 K/uL (4.8-10.8)
[2018-10-14 09:16] LABS: ALB/GLOB RATIO 1.4 (1.0-2.1); ALBUMIN 3.8 g/dL (3.5-5.0); CALCIUM 9.5 mg/dl (8.6-10.4)
[2018-10-14] MEDS ORDERED: HYDROmorphone 0.5 mg/0.5 ml ISec IVP PRN (09:29)
[2018-10-14] MEDS ORDERED: Midazolam 2 MG/2 ML VIAL ONE (09:37)
[2018-10-14] MEDS ORDERED: Propofol 10 mg/ml Inj (20 ML) ONE (09:38)
[2018-10-14] MEDS ORDERED: Iohexol 240 (50 ml) ONE (09:39)
[2018-10-14] MEDS ORDERED: Ciprofloxacin 400mg/200ml D5W 400 MG/200 ML BAG IVPB ONE (09:39)
--- NOTE | 2018-10-14 10:46 | PCM.SURG1 ---
Surgeon's Initial Post Op Note - Surgeon's Notes Surgeon: Cristhian Capellan Animation Artist: none Type of Anesthesia: General LMA Pre-Operative Diagnosis: L renal pelvic and ureteral tumor Operative Findings: same Post-Operative Diagnosis: same Operation Performed: cysto. L rtg pyelogram. L renal pelvic and ureteral bx and fulg. stent insertion. EUA Specimen/Specimens Removed: urine. renal pelvic and ureteral bx Estimated Blood Loss: EBL {In ML}: 10 Blood Products Given: N/A Post-Op Condition: Good Date of Surgery/Procedure: 10/14/18 Time of Surgery/Procedure: 10:46
[2018-10-14 11:44] VITALS: O2SAT 100
[2018-10-14 12:51] VITALS: BP 157/81; PULSE 70; RESP 18; TEMP 98
--- NOTE | 2018-10-14 16:07 | RAD ---
Date of service: 10/14/2018 PROCEDURE: Intraoperative Fluoroscopy. HISTORY: HEMATURIA FINDINGS: Fluoroscopic assistance was provided for cystogram, retrograde and stent placement . Please refer to the operative report from Dr. CONCEPCION EQUALITY. Total fluoroscopic time (continuous mode) utilized during the procedure 99.7 seconds. Dose report: DLP 1.74 (mGy/m2)
--- NOTE | 2018-10-16 16:10 | OP ---
PROCEDURE DATE: 10/14/2018 PREOPERATIVE DIAGNOSES: Hematuria. Left renal pelvic and ureteral tumor. POSTOPERATIVE DIAGNOSES: Hematuria. Left renal pelvic and ureteral tumor. PROCEDURES: Cystoscopy. Left retrograde ureteral pyelogram. Left ureterorenoscopy. Biopsy and fulguration of left renal pelvis and ureteral tumor. Insertion of left ureteral stent. Exam under anesthesia. OPERATING SURGEON: Karma Capellan MD DESCRIPTION OF PROCEDURE: As follows: The patient received perioperative antibiotics. The genitalia were prepped and draped in a sterile fashion. Anesthesia was provided by the anesthesiologist. The procedure was performed under fluoroscopic control as well as video endoscopic control. A 22-Latvian cystoscope sheath was introduced under direct vision. Urethra, prostate, and bladder were inspected. FINDINGS: There was no stricture in the anterior urethra. The left ureteral stent was in place. There was marked bladder trabeculation. There was no bladder tumor or stone identified. The left ureteral stent was grasped with rigid grasping forceps and brought to the distal end of cystoscope sheath. A 0.035 inch guidewire was inserted into the left ureteral stent and passed up to the level of the left kidney. The stent was removed. A double-lumen ureteral catheter was inserted over the guidewire. Iodinated contrast dye was instilled through the ureteral catheter. Left retrograde pyelogram demonstrated filling defects involving the proximal ureter as well as the renal collecting system. The second guidewire was inserted up to level of the kidney through the double lumen ureteral catheter. The cystoscope sheath was removed. A 12-Latvian ureteral access sheath was inserted over the working wire. The ureteroscopy was performed with a 7-Latvian flexible ureteroscope passed over the working wire. The ureteroscope was passed under fluoroscopic control as well as video endoscopic control. The ureteroscope was then passed up to the level of the kidney. Under endoscopic guidance as well as fluoroscopic control, the kidney and ureter were inspected. There were noted to be multiple papillary lesions. Test And Turn Up Technician biopsies were obtained from the renal collecting system as well as the ureter. Biopsies were obtained using cold cup biopsy forceps. In addition, biopsies were obtained. Fulguration was performed with 3-Latvian ball electrode and with electrocautery. The ureteroscope was removed. The ureteral access sheath was removed under direct vision in an atraumatic fashion. The cystoscope sheath was back-loaded over the remaining guidewire. A 6-Latvian multilength stent was inserted over the guidewire. Proper stent position was confirmed with fluoroscopy and endoscopy. The bladder was reinspected and confirmed the above findings. The cystoscope and sheath were removed. Melgar catheter was inserted. Exam under anesthesia/anorectal examination was performed. There was no evidence of abnormal pelvic mass fixation or induration. There was no prostatic mass palpable. There was no bladder mass palpable. The fluoroscopy revealed the presence of the prostatic radiation seeds. The patient was returned to supine position. The patient tolerated the procedure without complication. Karma Capellan MD
== END 2018-10-14 13:28 | disposition home or self-care (01) ==
LOC: C.ER 07:16 → C.SDS 09:03
PROVIDERS: ATTEND Urology
DX: C67.7 Malignant neoplasm of urachus (principal); E78.00 Pure hypercholesterolemia, unspecified; I10 Essential (primary) hypertension; Z95.1 Presence of aortocoronary bypass graft; R31.9 Hematuria, unspecified
CPT/HCPCS: 52007; 52332; 80053; 85025; 85610; 85730; 87086; 88104; 88305; 88307; 88342; 99285; A4322; C1758; C1769; C2617; J0744; Q9966

== ENCOUNTER 2018-10-19 05:38 | Inpatient (IN) | payer MEDICARE ==
[2018-10-19 06:36] VITALS: BMI 29.9
[2018-10-19] MEDS ORDERED: Bupivacaine HCl 0.5% PF (10 ml) Inj ONE ×2 (07:44→10:03)
[2018-10-19] MEDS ORDERED: ceFAZolin 1 gm in NS 0 GM/0 ML BAG IVPB ONE (07:44)
[2018-10-19] MEDS ORDERED: Vancomycin 1 gm/D5W 200 ml 0 GM/0 ML BAG IVPB ONE (08:17)
[2018-10-19] MEDS: Clindamycin 600mg/50ml NS 1,200 MG/100 ML BAG IVPB ONE ×2 (08:30→09:07)
[2018-10-19] MEDS ORDERED: Propofol 10 mg/ml Inj (20 ML) ONE (08:32)
[2018-10-19] MEDS ORDERED: Neostigmine 1:1000 (1 mg/ml) Inj ONE (09:41)
[2018-10-19] MEDS: HYDROmorphone 0.5 mg/0.5 ml ISec IVP PRN ×4 (10:27→12:25)
--- NOTE | 2018-10-19 10:39 | PCM.SURG1 ---
Surgeon's Initial Post Op Note - Surgeon's Notes Surgeon: Ilana Sol Police Commissioner: Cristhian Capellan Type of Anesthesia: General Endo Pre-Operative Diagnosis: L renal pelvic and ureteral tumor Operative Findings: same Post-Operative Diagnosis: same Operation Performed: L robot-assisted laparoscopic nephro-ureterectomy with bladder cuff Specimen/Specimens Removed: L kidney, ureter, bladder cuff Estimated Blood Loss: EBL {In ML}: 100 Blood Products Given: N/A Drains Used: Cedrick Gotti Post-Op Condition: Good Date of Surgery/Procedure: 10/19/18 Time of Surgery/Procedure: 10:15
--- NOTE | 2018-10-19 11:00 | CP.PCM.CON ---
History of Present Illness - History of Present Illness History of Present Illness: Consult note for Dr. Navarro HPI: Patient with PMHx of HTN, renal insufficiency, prostate cancer, bladder cancer, L renal tumor s/p laparoscopic L nephro-ureterectomy today. Medicine consulted for medical management. Patient complains of pain to the surgical site. Also admits to chronic pruritis to L leg, which he follows a regional sales executive for. Denies fever, chills, nausea, vomiting, diarrhea, headache, chest pain, shortness of breath. Patient states he was prescribed BP meds for elevated blood pressure 1.5 months ago. States it was temporary and only took the medication for only 2 weeks. PMHx: HTN, renal insufficiency, L renal tumor, bladder cancer, prostate cancer (treated with radiation), arthritis PSHx: Aortic valve replacement 2011, CABG 2011, Cholecystectomy 2016, Bladder fulguration 2015, appendectomy as child, tonsillectomy as child, renal bx 09/2018 Meds: Lorazepam 0.5mg BID PRN, hydrocortisone cream, states he took Metoprolol succinate for 2 weeks Allergies: PCN- reaction unknown Family Hx: mother and father with unspecified cancer Social Hx:Denies tobacco and drugs. 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 Lives with son. PMD: Dr. Fox, Urology: Dr. Cristhian Capellan Code status: "ask Georgette" Proxy: Georgette, niece [phone] Review of Systems: -Gen: No fever, No chills, No headache, No lethargy, No weakness. -HEENT: No dizziness, No change in vision, No change in hearing, No sore throat, No dysphagia, No nasal congestion, No mucous. -Cardio: No chest pain, No palpitations, No lower extremity edema, No orthopnea. -Resp: No cough, No dyspnea, No hemoptysis, No wheezing, No pain on inspiration. -GI: + abdominal pain to surgical site, No nausea/vomiting, No diarrhea, +constipation, No hematochezia, No hematemesis. -: No dysuria, No urinary freq, No incontinence, + hematuria -MSK: No back pain, No muscle weakness, No radiating pain. -Skin: + itching, No rash, No lesions. -Neuro: No confusion, No numbness, No tingling, No focal weakness, No radicular pain, No syncope. Past Patient History - Past Medical History & Family History Past Medical History?: Yes - Past Social History Smoking Status: Former Smoker - CARDIAC Hx Cardiac Disorders: Yes (Hx open heart aortic valve replacement) Hx Hypercholesterolemia: Yes Hx Hypertension: Yes - PULMONARY Hx Respiratory Disorders: No - NEUROLOGICAL Hx Neurological Disorder: No - HEENT Hx HEENT Problems: No Other/Comment: reading glasses - RENAL Hx Chronic Kidney Disease: Yes Other/Comment: L kidney mass - ENDOCRINE/METABOLIC Hx Endocrine Disorders: No - HEMATOLOGICAL/ONCOLOGICAL Hx Blood Disorders: Yes Hx Cancer: Yes (Prostate, bladder) - INTEGUMENTARY Hx Dermatological Problems: No - MUSCULOSKELETAL/RHEUMATOLOGICAL Hx Musculoskeletal Disorders: Yes Hx Arthritis: Yes Hx Falls: Yes Other/Comment: R shoulder dislocation - GASTROINTESTINAL Hx Gastrointestinal Disorders: Yes (Hiatal hernia) - GENITOURINARY/GYNECOLOGICAL Hx Genitourinary Disorders: Yes Hx Bladder Cancer: Yes Hx Hematuria: Yes Hx Prostate Cancer: Yes Other/Comment: LEFT RENAL PELVIC TUMOR - PSYCHIATRIC Hx Psychophysiologic Disorder: Yes Hx Substance Use: No - SURGICAL HISTORY Hx Surgeries: Yes Hx Appendectomy: Yes Hx Cholecystectomy: Yes Hx Coronary Artery Bypass Graft: Yes Hx Open Heart Surgery: Yes Hx Tonsillectomy: Yes Hx Valve Replacement: Yes (Aortic Valve, 2011) Other/Comment: Prostate seed implant - ANESTHESIA Hx Anesthesia: Yes Hx Anesthesia Reactions: No Hx Malignant Hyperthermia: No Has any member of the family had a problem w/ anesthesia?: No Meds Allergies/Adverse Reactions: Allergies Allergy/AdvReac Type Severity Reaction Status Date / Time Penicillins Allergy Intermediate RASH Verified 10/14/18 07:23 - Medications Medications: Current Medications Docusate Sodium (Colace) 100 mg PO TID VIDAL Hydromorphone HCl (Dilaudid) 0.5 mg IVP Q5M PRN PRN Reason: Pain, moderate (4-7) Stop: 10/19/18 12:11 Last Admin: 10/19/18 10:27 Dose: 0.5 mg Dextrose/Sodium Chloride (Dextrose 5%/0.45% Ns 1000 Ml) 1,000 mls @ 100 mls/hr IV .Q10H VIDAL Ondansetron HCl (Zofran Inj) 4 mg IVP ONCE PRN PRN Reason: Nausea/Vomiting Stop: 10/19/18 12:12 Physical Exam - Constitutional Appears: Non-toxic, No Acute Distress - Head Exam Head Exam: ATRAUMATIC, NORMOCEPHALIC - Eye Exam Eye Exam: EOMI, Normal appearance, PERRL - ENT Exam ENT Exam: Mucous Membranes Dry - Neck Exam Neck exam: Positive for: Full Rom, Lymphadenopathy - Respiratory Exam Respiratory Exam: Clear to Auscultation Bilateral, NORMAL BREATHING PATTERN. absent: Rales, Rhonchi, Wheezes - Cardiovascular Exam Cardiovascular Exam: REGULAR RHYTHM, +S1, +S2 Additional comments: Well healed sternotomy scar - GI/Abdominal Exam GI & Abdominal Exam: Normal Bowel Sounds, Soft. absent: Guarding, Rebound, Tenderness Additional comments: surgical dressing L abdomen C/D/I, YADIRA drain in place draining sanguanous fluid. well healed surgical scare RUQ and RLQ. - Exam Additional comments: [place] urine draining from weiner - Extremities Exam Extremities exam: Positive for: full ROM, normal capillary refill, normal inspection, pedal pulses present. Negative for: calf tenderness, pedal edema - Neurological Exam Neurological exam: Alert, CN II-XII Intact (grossly), Oriented x3 Additional comments: 5/5 Muscle strength all extremities. - Psychiatric Exam Psychiatric exam: Normal Affect, Normal Mood - Skin Skin Exam: Dry, Intact, Warm Additional comments: healing ecchymosis bilateral hands and forearms, excoriations noted to L thigh Results - Vital Signs Recent Vital Signs: Last Vital Signs Temp 96.9 F L 10/19/18 05:57 Pulse 86 10/19/18 05:57 Resp 18 10/19/18 05:57 BP 152/92 H 10/19/18 05:57 Pulse Ox 100 10/19/18 05:57 - Labs Labs: Laboratory Results - last 24 hr 10/19/18 06:57 Blood Type O POSITIVE Antibody Screen Negative Assessment & Plan - Assessment and Plan (Free Text) Assessment: Patient with PMHx of HTN, renal insufficiency, prostate cancer, bladder cancer, L renal tumor s/p laparoscopic L nephro-ureterectomy today. Medicine consulted for medical management. Plan: L renal tumor s/p laparoscopic L nephro-ureterectomy Hx of bladder cancer, prostate cancer -management as per Urology, Dr. Leslie -Dilaudid SALES CONSULTANT as per anesthesiology Hx of HTN -Metoprolol Succinate 25mg daily Hx renal insufficiency -BUN Cr: 59/2.9 with similar values in chart records since 08/2018; previously Cr 1.5 in 05/2016 -Nephrology, Dr. Brennan consulted, help appreciated Hx of CABG, Aortic valve replacement -Cardiology consulted. Help appreciated. Hx of pruritus L thigh -Follows regional sales executive outpatient -continue hydrocortisone cream PPx DVT: hold due to recent surgery GI: not indicated Liquid diet Case discussed with Dr. Ramon Plummer, PGY-1
[2018-10-19] MEDS ORDERED: Naloxone 0.4 mg/ml Inj (Adult) IVP PRN (11:17)
[2018-10-19] MEDS ORDERED: Dextrose 5%/0.45% NS 1,000 ML IV ONE (12:00)
--- NOTE | 2018-10-19 17:10 | CP.PCM.CON ---
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 pt is s/p cabg, with AVR. A recent outpatient echo demonstrated normal, LV EF, and normal functioing bio AV. Type II DD, and moderate LVH. PMHx: HTN, renal insufficiency, L renal and ureteral mass, bladder cancer, prostate cancer (treated with radiation), arthritis PSHx: Aortic valve replacement 2011, CABG 2011, Cholecystectomy 2016, appendectomy as child, tonsillectomy as child, renal bx 09/2018 Meds: Lorazepam 0.5mg BID PRN, Denies taking Metoprolol succinate currently Allergies:PCN- reaction unknown Family Hx: mother and father with unspecified cancer Social Hx:Denies tobacco and drugs. 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 Lives with son. pt had robotic procedure today and has a urethral tumor. he is comfortable., no chest pain or [place]. Review of Systems - Review of Systems All systems: reviewed and no additional remarkable complaints except (as above/.) Past Patient History - Past Medical History & Family History Past Medical History?: Yes - Past Social History Smoking Status: Former Smoker - CARDIAC Hx Cardiac Disorders: Yes (Hx open heart aortic valve replacement) Hx Hypercholesterolemia: Yes Hx Hypertension: Yes - PULMONARY Hx Respiratory Disorders: No - NEUROLOGICAL Hx Neurological Disorder: No - HEENT Hx HEENT Problems: No Other/Comment: reading glasses - RENAL Hx Chronic Kidney Disease: Yes Other/Comment: L kidney mass - ENDOCRINE/METABOLIC Hx Endocrine Disorders: No - HEMATOLOGICAL/ONCOLOGICAL Hx Blood Disorders: Yes Hx Cancer: Yes (Prostate, bladder) - INTEGUMENTARY Hx Dermatological Problems: No - MUSCULOSKELETAL/RHEUMATOLOGICAL Hx Musculoskeletal Disorders: Yes Hx Arthritis: Yes Hx Falls: Yes Other/Comment: R shoulder dislocation - GASTROINTESTINAL Hx Gastrointestinal Disorders: Yes (Hiatal hernia) - GENITOURINARY/GYNECOLOGICAL Hx Genitourinary Disorders: Yes Hx Bladder Cancer: Yes Hx Hematuria: Yes Hx Prostate Cancer: Yes Other/Comment: LEFT RENAL PELVIC TUMOR - PSYCHIATRIC Hx Psychophysiologic Disorder: Yes Hx Substance Use: No - SURGICAL HISTORY Hx Surgeries: Yes Hx Appendectomy: Yes Hx Cholecystectomy: Yes Hx Coronary Artery Bypass Graft: Yes Hx Open Heart Surgery: Yes Hx Tonsillectomy: Yes Hx Valve Replacement: Yes (Aortic Valve, 2011) Other/Comment: Prostate seed implant - ANESTHESIA Hx Anesthesia: Yes Hx Anesthesia Reactions: No Hx Malignant Hyperthermia: No Has any member of the family had a problem w/ anesthesia?: No Meds Allergies/Adverse Reactions: Allergies Allergy/AdvReac Type Severity Reaction Status Date / Time Penicillins Allergy Intermediate RASH Verified 10/14/18 07:23 - Medications Medications: Current Medications Docusate Sodium (Colace) 100 mg PO TID [facility] Last Admin: 10/19/18 16:47 Dose: Not Given Hydromorphone/Sodium Chloride (Dilaudid Property Claims Manager) 4 mg IV Q4H PRN; Protocol PRN Reason: Pain, moderate (4-7) Last Admin: 10/19/18 15:19 Dose: 4 mg Dextrose/Sodium Chloride (Dextrose 5%/0.45% Ns 1000 Ml) 1,000 mls @ 100 mls/hr IV .Q10H [facility] Metoprolol Succinate (Toprol Xl) 25 mg PO Q24H [facility] Naloxone HCl (Narcan) 0.1 mg IVP Q2M PRN PRN Reason: Excess sedation Ondansetron HCl (Zofran Inj) 4 mg IVP Q8H PRN PRN Reason: Nausea/Vomiting Physical Exam - Constitutional Appears: Well - Head Exam Head Exam: ATRAUMATIC - Eye Exam Eye Exam: EOMI Pupil Exam: NORMAL ACCOMODATION - ENT Exam ENT Exam: Mucous Membranes Moist - Respiratory Exam Respiratory Exam: Clear to Auscultation Bilateral - Cardiovascular Exam Cardiovascular Exam: REGULAR RHYTHM - GI/Abdominal Exam GI & Abdominal Exam: Normal Bowel Sounds - Exam External exam: NORMAL EXTERNAL EXAM - Extremities Exam Extremities exam: Positive for: normal inspection - Back Exam Back exam: NORMAL INSPECTION - Neurological Exam Neurological exam: Alert, CN II-XII Intact, Reflexes Normal - Psychiatric Exam Psychiatric exam: Normal Affect, Normal Mood - Skin Skin Exam: Normal Color Results - Vital Signs Recent Vital Signs: Last Vital Signs Temp 97.6 F 10/19/18 15:48 Pulse 74 10/19/18 15:48 Resp 20 10/19/18 15:48 BP 155/81 H 10/19/18 15:48 Pulse Ox 100 10/19/18 15:48 - Labs Labs: Laboratory Results - last 24 hr 10/19/18 06:57 Blood Type O POSITIVE Antibody Screen Negative - EKG Data EKG Interpreted by: Myself EKG shows normal: Sinus rhythm (leftward axis, non specific changes) Assessment & Plan - Assessment and Plan (Free Text) Assessment: 1. pt is stable after the procedure. His bp is high. As cr is elevated, I will add norvasc. 2. CAD is stable 3. No evidence of pulmonary congestion.
[2018-10-19] MEDS: Metoprolol Succinate 25 mg XL Tab PO SCH (17:32)
[2018-10-19] MEDS: Hydrocortisone 1% Cream (30 GM) TOP SCH (19:52)
[2018-10-19] MEDS: Dextrose 5%/0.45% NS 1,000 ML IV SCH (22:34)
[2018-10-19] MEDS: Benzocaine/Menthol (Cepacol) Lozenge MT PRN (22:34)
[2018-10-20 01:30] VITALS: RESP 20
[2018-10-20] MEDS: Benzocaine/Menthol (Cepacol) Lozenge MT PRN (04:42)
[2018-10-20 06:50] LABS: HEMOGLOBIN 8.8 g/dL (12.0-18.0); MEAN CELL VOLUME 106.9 fL (80.0-94.0); MEAN CORPUSCULAR HEMOGLOBIN 36.3 pg (27.0-31.0); MEAN CORPUSCULAR HGB CONC 33.9 g/dL (33.0-37.0); MEAN PLATELET VOLUME 7.6 fL (7.2-11.7); RBC 2.43 Mil/uL (4.40-5.90); RED CELL DISTRIBUTION WIDTH 13.2 % (11.5-14.5); WHITE BLOOD COUNT 6.7 K/uL (4.8-10.8)
[2018-10-20 07:05] LABS: CALCIUM 8.2 mg/dl (8.6-10.4)
[2018-10-20] MEDS: Dextrose 5%/0.45% NS 1,000 ML IV SCH ×2 (07:30→17:00)
--- NOTE | 2018-10-20 07:47 | OP ---
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 PROCEDURE PERFORMED: Robotic-assisted laparoscopic nephrectomy, ureterectomy and bladder cuff with suturing of the bladder cuff and open retrieval of the large kidney mass. SURGEON: Raysa Sol MD DIGITAL CONTENT PRODUCER: Karma Capellan MD TYPE OF ANESTHESIA: General. COMPLICATIONS: None. PREOPERATIVE ANTIBIOTICS: Clindamycin. DESCRIPTION OF PROCEDURE: The patient was taken to the OR, placed in supine position. After anesthetic was obtained, perioperative antibiotics were given. The patient was placed in left lateral position and the table was flexed. The patient was placed in slight Trendelenburg position, prepped in the usual manner. Then, incision was made superior and lateral to the umbilicus in a straight line, rest of the port was placed, taking into account that we have to do a nephroureterectomy with a cuff toward the end. Then, once all the ports were placed under direct vision, then robot was docked. Adhesions were taken down. Line of Toldt was cleared and colon was mobilized medially. Spleen was mobilized and then kidney was large and floppy. After mobilization medially, we found the renal vein and gonadal. We decided to take the gonadal since we were going to take the ureter down as well. We found a space between the upper hilar area and lower hilar area and then stapler was placed and then rest of the upper area was cleared and laterally was cleared and then ureter was freed and mobilized all the way down to the bladder and then everted the cuff and removed the mucosa of the bladder along with the ureter and then ureter was closed with 3-0 Vicryl V-Lock and then attempt to place the specimen in the bag; it was too large for the bag; therefore we did an open retrieval and communicating the incision of the robotic ports and removed the specimen. Then fascia was closed using #1 PDS. Skin was reapproximated with staple. The patient tolerated the procedure well without complication. Raysa Sol MD
--- NOTE | 2018-10-20 07:51 | CP.PCM.CON ---
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 Prior to procedure patient required renal biopsy of mass. Pt is s/p cabg, with AVR. A recent outpatient echo demonstrated normal, LV EF, and normal functioing bio AV. Type II DD, and moderate LVH. Reports history of htn for short period Does not take meds at home on routine basis other than "pill for arthritis" Now s/p robotic left nephrectomy, tolerated procedure well. Pain controlled with current medication. No sob or cough, no cp or palp, no n/v/d PMHx: HTN, renal insufficiency, L renal and ureteral mass, bladder cancer, prostate cancer (treated with radiation), arthritis PSHx: Aortic valve replacement 2011, CABG 2011, Cholecystectomy 2016, appendectomy as child, tonsillectomy as child, renal bx 09/2018 Meds: Lorazepam 0.5mg BID PRN, Denies taking Metoprolol succinate currently Allergies:PCN- reaction unknown Family Hx: mother and father with unspecified cancer Social Hx:Denies tobacco and drugs. 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 Lives with son. Review of Systems - Constitutional Constitutional: absent: Anorexia, Chills, Fever, Night Sweats - EENT Eyes: absent: Blurred Vision, Change in Vision, Diplopia Ears: absent: Decreased Hearing, Ear Pain, Dizziness Nose/Mouth/Throat: absent: Nasal Congestion, Nasal Trauma, Dry Mouth, Throat Swelling - Cardiovascular Cardiovascular: absent: Chest Pain, Diaphoresis, Dyspnea, Edema, Orthopnea, Palpitations - Respiratory Respiratory: absent: Cough, Dyspnea on Exertion, Wheezing - Gastrointestinal Gastrointestinal: absent: Cramping, Diarrhea, Heartburn, Vomiting - Genitourinary Genitourinary: absent: Hematuria, Pyuria, Nocturia - Musculoskeletal Musculoskeletal: Arthralgias. absent: Back Pain, Muscle Weakness, Myalgias - Integumentary Integumentary: Dry Skin. absent: Erythema, Sores - Neurological Neurological: absent: Confusion, Syncope, Vertigo, Weakness - Psychiatric Psychiatric: absent: Change in Appetite, Depression, Memory Loss - Endocrine Endocrine: absent: Cold Intolorance, Fatigue, Heat Intolorance - Hematologic/Lymphatic Hematologic: absent: Easy Bleeding, Easy Bruising Past Patient History - Past Medical History & Family History Past Medical History?: Yes - Past Social History Smoking Status: Former Smoker - CARDIAC Hx Cardiac Disorders: Yes (Hx open heart aortic valve replacement) Hx Hypercholesterolemia: Yes Hx Hypertension: Yes - PULMONARY Hx Respiratory Disorders: No - NEUROLOGICAL Hx Neurological Disorder: No - HEENT Hx HEENT Problems: No Other/Comment: reading glasses - RENAL Hx Chronic Kidney Disease: Yes Other/Comment: L kidney mass - ENDOCRINE/METABOLIC Hx Endocrine Disorders: No - HEMATOLOGICAL/ONCOLOGICAL Hx Blood Disorders: Yes Hx Cancer: Yes (Prostate, bladder) - INTEGUMENTARY Hx Dermatological Problems: No - MUSCULOSKELETAL/RHEUMATOLOGICAL Hx Musculoskeletal Disorders: Yes Hx Arthritis: Yes Hx Falls: Yes Other/Comment: R shoulder dislocation - GASTROINTESTINAL Hx Gastrointestinal Disorders: Yes (Hiatal hernia) - GENITOURINARY/GYNECOLOGICAL Hx Genitourinary Disorders: Yes Hx Bladder Cancer: Yes Hx Hematuria: Yes Hx Prostate Cancer: Yes Other/Comment: LEFT RENAL PELVIC TUMOR - PSYCHIATRIC Hx Psychophysiologic Disorder: Yes Hx Substance Use: No - SURGICAL HISTORY Hx Surgeries: Yes Hx Appendectomy: Yes Hx Cholecystectomy: Yes Hx Coronary Artery Bypass Graft: Yes Hx Open Heart Surgery: Yes Hx Tonsillectomy: Yes Hx Valve Replacement: Yes (Aortic Valve, 2011) Other/Comment: Prostate seed implant - ANESTHESIA Hx Anesthesia: Yes Hx Anesthesia Reactions: No Hx Malignant Hyperthermia: No Has any member of the family had a problem w/ anesthesia?: No Meds Allergies/Adverse Reactions: Allergies Allergy/AdvReac Type Severity Reaction Status Date / Time Penicillins Allergy Intermediate RASH Verified 10/14/18 07:23 - Medications Medications: Current Medications Amlodipine Besylate (Norvasc) 10 mg PO DAILY [facility] Last Admin: 10/19/18 17:32 Dose: 10 mg Benzocaine/Menthol (Cepacol Sore Throat) 1 ivette MT Q4H PRN PRN Reason: Sore Throat Last Admin: 10/20/18 04:42 Dose: 1 ivette Docusate Sodium (Colace) 100 mg PO TID [facility] Last Admin: 10/19/18 17:32 Dose: 100 mg Hydrocortisone (Cortizone 1% Cream) 1 gm TOP BID [facility] Last Admin: 10/19/18 19:52 Dose: 1 applic Hydromorphone/Sodium Chloride (Dilaudid Lens Cleaner) 4 mg IV Q4H PRN; Protocol PRN Reason: Pain, moderate (4-7) Last Admin: 10/19/18 15:19 Dose: 4 mg Dextrose/Sodium Chloride (Dextrose 5%/0.45% Ns 1000 Ml) 1,000 mls @ 100 mls/hr IV .Q10H [facility] Last Admin: 10/19/18 22:34 Dose: 100 mls/hr Metoprolol Succinate (Toprol Xl) 25 mg PO Q24H [facility] Last Admin: 10/19/18 17:32 Dose: 25 mg Naloxone HCl (Narcan) 0.1 mg IVP Q2M PRN PRN Reason: Excess sedation Ondansetron HCl (Zofran Inj) 4 mg IVP Q8H PRN PRN Reason: Nausea/Vomiting Physical Exam - Head Exam Head Exam: ATRAUMATIC, NORMAL INSPECTION - Eye Exam Eye Exam: EOMI, Normal appearance - ENT Exam ENT Exam: Mucous Membranes Moist, Normal Oropharynx - Neck Exam Neck exam: Negative for: Lymphadenopathy, Thyromegaly - Respiratory Exam Respiratory Exam: Clear to Auscultation Bilateral. absent: Rales, Rhonchi - Cardiovascular Exam Cardiovascular Exam: +S1, +S2, Systolic Murmur. absent: Rubs - GI/Abdominal Exam GI & Abdominal Exam: Distended, Soft - Extremities Exam Extremities exam: Positive for: pedal edema. Negative for: tenderness - Back Exam Back exam: absent: muscle spasm, tenderness - Neurological Exam Neurological exam: Alert, Oriented x3 - Psychiatric Exam Psychiatric exam: Normal Affect, Normal Mood Results - Vital Signs Recent Vital Signs: Last Vital Signs Temp 98.5 F 10/19/18 23:32 Pulse 78 10/20/18 04:00 Resp 20 10/19/18 23:32 BP 109/70 10/19/18 23:32 Pulse Ox 98 10/19/18 23:32 - Labs Result Diagrams: 10/20/18 06:36 10/20/18 06:36 Labs: Laboratory Results - last 24 hr 10/19/18 10/20/18 10/20/18 06:57 06:36 06:36 WBC 6.7 RBC 2.43 L Hgb 8.8 L Hct 26.0 L MCV 106.9 H MCH 36.3 H MCHC 33.9 RDW 13.2 Plt Count 149 MPV 7.6 Sodium 135 Potassium 4.7 Chloride 105 Carbon Dioxide 21 L Anion Gap 14 BUN 41 H Creatinine 3.1 H Est GFR ( Amer) 23 Est GFR (Non-Af Amer) 19 Random Glucose 135 H D Calcium 8.2 L Blood Type O POSITIVE Antibody Screen Negative Assessment & Plan (1) Acute kidney failure Status: Acute (2) Chronic kidney disease Status: Acute (3) Anemia Status: Acute (4) Hypotension after procedure Status: Acute (5) History of nephrectomy, left Status: Acute (6) Kidney mass Status: Acute - Assessment and Plan (Free Text) Assessment: Acute kidney injury on chronic kidney disease S/p left nephrectomy for malignancy Stop amlodipine for hypotension Serial hgb Follow urine output and creatinine Caution pain meds No nsaids or any other nephrotoxin
[2018-10-20 10:24] LABS: ALB/GLOB RATIO 1.2 (1.0-2.1); ALBUMIN 2.9 g/dL (3.5-5.0); BILIRUBIN,DIRECT 0.6 mg/dL (0.0-0.4)
[2018-10-20] MEDS: Hydrocortisone 1% Cream (30 GM) TOP SCH ×2 (10:31→18:31)
--- NOTE | 2018-10-20 15:13 | CP.PCM.PN ---
<Jesús Champagne - Last Filed: 10/20/18 15:15> Subjective - Date & Time of Evaluation Date of Evaluation: 10/20/18 Time of Evaluation: 15:19 - Subjective Subjective: PGY-[address] Navarro Patient seen and examined at bedside. No acute events overnight. Patient tolerated procedure well. Having pain, but controlled with FX ARTIST pump. Advancing diet as tolerated per urology. Denies dizziness, flank pain, headache, numbness, or tingling. Objective - Vital Signs/Intake and Output Vital Signs (last 24 hours): Temp Pulse Resp BP Pulse Ox 99.6 F 81 20 157/84 H 95 10/20/18 08:23 10/20/18 08:23 10/20/18 08:23 10/20/18 08:23 10/20/18 08:23 Intake and Output: 10/20/18 10/20/18 06:59 18:59 Intake Total 800 1280 Output Total 885 1370 Balance -85 -90 - Medications Medications: Current Medications Benzocaine/Menthol (Cepacol Sore Throat) 1 ivette MT Q4H PRN PRN Reason: Sore Throat Last Admin: 10/20/18 04:42 Dose: 1 ivette Docusate Sodium (Colace) 100 mg PO TID [facility] Last Admin: 10/20/18 13:22 Dose: 100 mg Hydrocortisone (Cortizone 1% Cream) 1 gm TOP BID [facility] Last Admin: 10/20/18 10:31 Dose: 1 applic Hydromorphone/Sodium Chloride (Dilaudid Making Machine Operator) 4 mg IV Q4H PRN; Protocol PRN Reason: Pain, moderate (4-7) Last Admin: 10/19/18 15:19 Dose: 4 mg Dextrose/Sodium Chloride (Dextrose 5%/0.45% Ns 1000 Ml) 1,000 mls @ 100 mls/hr IV .Q10H [facility] Last Admin: 10/20/18 07:30 Dose: Not Given Metoprolol Succinate (Toprol Xl) 25 mg PO Q24H [facility] Last Admin: 10/19/18 17:32 Dose: 25 mg Naloxone HCl (Narcan) 0.1 mg IVP Q2M PRN PRN Reason: Excess sedation Ondansetron HCl (Zofran Inj) 4 mg IVP Q8H PRN PRN Reason: Nausea/Vomiting - Labs Labs: 10/20/18 06:36 10/20/18 06:36 - Constitutional Appears: Non-toxic, No Acute Distress - Head Exam Head Exam: ATRAUMATIC, NORMOCEPHALIC - Eye Exam Eye Exam: EOMI - ENT Exam ENT Exam: Mucous Membranes Moist - Respiratory Exam Respiratory Exam: Clear to Ausculation Bilateral, NORMAL BREATHING PATTERN. absent: Rhonchi, Wheezes - Cardiovascular Exam Cardiovascular Exam: REGULAR RHYTHM, +S1, +S2 - GI/Abdominal Exam GI & Abdominal Exam: Soft, Tenderness (tenderness at surgical site, appropriate), Normal Bowel Sounds Additional comments: s/p L nephroureterectomy, dressings c/d/i - Exam Exam: absent: Scrotal Swelling, Uretheral Discharge Additional comments: Melgar draining clear yellow urine - Extremities Exam Extremities Exam: absent: Pedal Edema, Tenderness - Neurological Exam Neurological Exam: Alert, Awake, Oriented x3 - Psychiatric Exam Psychiatric exam: Normal Affect, Normal Mood - Skin Skin Exam: Dry, Intact Assessment and Plan - Assessment and Plan (Free Text) Assessment: Assessment: Patient with PMHx of HTN, renal insufficiency, prostate cancer, bladder cancer, 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 Medicine consulted for medical management. 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 Melgar inserted draining yellow/clear urine. -management as per Urology, Dr. Leslie -Dilaudid FX ARTIST as per anesthesiology Hx of HTN -Metoprolol Succinate 25mg daily Acute on Chronic Renal Insufficiency -BUN Cr: 59/2.9 with similar values in chart records since 08/2018; previously Cr 1.5 in 05/2016 -Nephrology, Dr. Brennan consulted, help appreciated --Amlodipine discontinued 2/2 renal insufficiency --Is and Os --Follow Creatinine --Avoid nephrotoxins Hx of CABG, Aortic valve replacement -Cardiology consulted. Help appreciated. Hx of pruritus L thigh -Follows eight section blower outpatient -continue hydrocortisone cream PPx DVT: hold due to recent surgery GI: not indicated Case discussed with Dr. Ramon Champagne, PGY-1 <Veto Navarro - Last Filed: 10/23/18 18:50> Objective - Vital Signs/Intake and Output Vital Signs (last 24 hours): Temp Pulse Resp BP Pulse Ox 98 F 77 20 134/74 96 10/20/18 15:00 10/20/18 15:00 10/20/18 15:00 10/20/18 15:00 10/20/18 15:00 Intake and Output: 10/20/18 10/20/18 06:59 18:59 Intake Total 800 1280 Output Total 885 1370 Balance -85 -90 - Medications Medications: Current Medications Benzocaine/Menthol (Cepacol Sore Throat) 1 ivette MT Q4H PRN PRN Reason: Sore Throat Last Admin: 10/20/18 04:42 Dose: 1 ivette Docusate Sodium (Colace) 100 mg PO TID [facility] Last Admin: 10/20/18 13:22 Dose: 100 mg Hydrocortisone (Cortizone 1% Cream) 1 gm TOP BID [facility] Last Admin: 10/20/18 10:31 Dose: 1 applic Hydromorphone/Sodium Chloride (Dilaudid Making Machine Operator) 4 mg IV Q4H PRN; Protocol PRN Reason: Pain, moderate (4-7) Last Admin: 10/19/18 15:19 Dose: 4 mg Dextrose/Sodium Chloride (Dextrose 5%/0.45% Ns 1000 Ml) 1,000 mls @ 100 mls/hr IV .Q10H [facility] Last Admin: 10/20/18 07:30 Dose: Not Given Metoprolol Succinate (Toprol Xl) 25 mg PO Q24H [facility] Last Admin: 10/19/18 17:32 Dose: 25 mg Naloxone HCl (Narcan) 0.1 mg IVP Q2M PRN PRN Reason: Excess sedation Ondansetron HCl (Zofran Inj) 4 mg IVP Q8H PRN PRN Reason: Nausea/Vomiting - Labs Labs: 10/20/18 06:36 10/20/18 06:36 Attending/Attestation - Attestation I have personally seen and examined this patient.: Yes I have fully participated in the care of the patient.: Yes I have reviewed all pertinent clinical information, including history, physical exam and plan: Yes Notes (Text): 1. s/p laparoscopic L nephro-ureterectomy 2.Hx of HTN 3.Acute on Chronic Renal Insufficiency 4.Hx of CABG, Aortic valve replacement
[2018-10-20] MEDS: Metoprolol Succinate 25 mg XL Tab PO SCH (18:00)
[2018-10-21] MEDS: Dextrose 5%/0.45% NS 1,000 ML IV SCH ×3 (02:00→17:18)
[2018-10-21] MEDS: Benzocaine/Menthol (Cepacol) Lozenge MT PRN (03:45)
[2018-10-21 07:40] LABS: HEMOGLOBIN 8.4 g/dL (12.0-18.0); MEAN CORPUSCULAR HEMOGLOBIN 36.1 pg (27.0-31.0); MEAN CORPUSCULAR HGB CONC 33.7 g/dL (33.0-37.0); MEAN PLATELET VOLUME 8.1 fL (7.2-11.7); RBC 2.32 Mil/uL (4.40-5.90); RED CELL DISTRIBUTION WIDTH 12.8 % (11.5-14.5); WHITE BLOOD COUNT 7.5 K/uL (4.8-10.8)
[2018-10-21 08:33] LABS: ALB/GLOB RATIO 1.2 (1.0-2.1); ALBUMIN 2.7 g/dL (3.5-5.0); CALCIUM 8.4 mg/dl (8.6-10.4)
[2018-10-21] MEDS: Hydrocortisone 1% Cream (30 GM) TOP SCH ×2 (10:03→17:16)
[2018-10-21] MEDS: Oxycodone/Acetaminophen 5/325 mg Tab PO PRN ×3 (10:57→21:36)
[2018-10-21] MEDS ORDERED: Magnesium Hydroxide Susp 30 ml UD PO ONE ×2 (11:00→14:41)
--- NOTE | 2018-10-21 15:17 | CP.PCM.PN ---
Subjective - Date & Time of Evaluation Date of Evaluation: 10/21/18 Time of Evaluation: 15:15 - Subjective Subjective: pain with movement appetite fair weiner with clear urine no chest pain no sob no fever no rash no arthralgias no headache Objective - Vital Signs/Intake and Output Vital Signs (last 24 hours): Temp Pulse Resp BP Pulse Ox 98.2 F 79 20 165/80 H 97 10/21/18 08:10 10/21/18 08:10 10/21/18 08:10 10/21/18 08:10 10/21/18 08:10 Intake and Output: 10/21/18 10/21/18 06:59 18:59 Intake Total 800 Output Total 770 Balance 30 - Medications Medications: Current Medications Benzocaine/Menthol (Cepacol Sore Throat) 1 ivette MT Q4H PRN PRN Reason: Sore Throat Last Admin: 10/21/18 03:45 Dose: 1 ivette Docusate Sodium (Colace) 100 mg PO TID [facility] Last Admin: 10/21/18 14:38 Dose: 100 mg Hydrocortisone (Cortizone 1% Cream) 1 gm TOP BID [facility] Last Admin: 10/21/18 10:03 Dose: 1 applic Dextrose/Sodium Chloride (Dextrose 5%/0.45% Ns 1000 Ml) 1,000 mls @ 100 mls/hr IV .Q10H [facility] Last Admin: 10/21/18 08:29 Dose: 100 mls/hr Metoprolol Succinate (Toprol Xl) 25 mg PO Q24H [facility] Last Admin: 10/20/18 18:00 Dose: 25 mg Naloxone HCl (Narcan) 0.1 mg IVP Q2M PRN PRN Reason: Excess sedation Ondansetron HCl (Zofran Inj) 4 mg IVP Q8H PRN PRN Reason: Nausea/Vomiting Oxycodone/Acetaminophen (Percocet 5/325 Mg Tab) 1 tab PO Q4H PRN PRN Reason: Pain, moderate (4-7) Stop: 10/24/18 08:47 Last Admin: 10/21/18 10:57 Dose: 1 tab - Labs Labs: 10/21/18 07:17 10/21/18 07:17 - Constitutional Appears: Non-toxic, Chronically Ill - Head Exam Head Exam: ATRAUMATIC, NORMAL INSPECTION - Eye Exam Eye Exam: EOMI - ENT Exam ENT Exam: Mucous Membranes Moist - Neck Exam Neck Exam: Full ROM. absent: Lymphadenopathy - Respiratory Exam Respiratory Exam: Decreased Breath Sounds. absent: Accessory Muscle Use - Cardiovascular Exam Cardiovascular Exam: REGULAR RHYTHM. absent: Rubs - GI/Abdominal Exam GI & Abdominal Exam: Soft, Tenderness. absent: Rebound - Neurological Exam Neurological Exam: Alert, Oriented x3 Assessment and Plan - Assessment and Plan (Free Text) Assessment: ckd post nephrectomy for renal cancer stable function at present continue IVF and post op care outpatient follow up upon discharge
--- NOTE | 2018-10-21 15:34 | CP.PCM.PN ---
<Jesús Champagne - Last Filed: 10/21/18 15:31> Subjective - Date & Time of Evaluation Date of Evaluation: 10/21/18 Time of Evaluation: 15:31 - Subjective Subjective: PGY-[address] Navarro Patient seen and examined at bedside. No acute events overnight. Having pain post-op, with CONTINUOUS MINER OPERATOR pump. Advancing diet as tolerated. No BMs since surgery. PT/OT. Denies dizziness, flank pain, headache, numbness, or tingling. Objective - Vital Signs/Intake and Output Vital Signs (last 24 hours): Temp Pulse Resp BP Pulse Ox 98.2 F 79 20 165/80 H 97 10/21/18 08:10 10/21/18 08:10 10/21/18 08:10 10/21/18 08:10 10/21/18 08:10 Intake and Output: 10/21/18 10/21/18 06:59 18:59 Intake Total 800 Output Total 770 Balance 30 - Medications Medications: Current Medications Benzocaine/Menthol (Cepacol Sore Throat) 1 ivette MT Q4H PRN PRN Reason: Sore Throat Last Admin: 10/21/18 03:45 Dose: 1 ivette Docusate Sodium (Colace) 100 mg PO TID [facility] Last Admin: 10/21/18 14:38 Dose: 100 mg Hydrocortisone (Cortizone 1% Cream) 1 gm TOP BID [facility] Last Admin: 10/21/18 10:03 Dose: 1 applic Dextrose/Sodium Chloride (Dextrose 5%/0.45% Ns 1000 Ml) 1,000 mls @ 100 mls/hr IV .Q10H [facility] Last Admin: 10/21/18 08:29 Dose: 100 mls/hr Metoprolol Succinate (Toprol Xl) 25 mg PO Q24H [facility] Last Admin: 10/20/18 18:00 Dose: 25 mg Naloxone HCl (Narcan) 0.1 mg IVP Q2M PRN PRN Reason: Excess sedation Ondansetron HCl (Zofran Inj) 4 mg IVP Q8H PRN PRN Reason: Nausea/Vomiting Oxycodone/Acetaminophen (Percocet 5/325 Mg Tab) 1 tab PO Q4H PRN PRN Reason: Pain, moderate (4-7) Stop: 10/24/18 08:47 Last Admin: 10/21/18 10:57 Dose: 1 tab - Labs Labs: 10/21/18 07:17 10/21/18 07:17 - Constitutional Appears: Non-toxic, No Acute Distress - Head Exam Head Exam: ATRAUMATIC, NORMOCEPHALIC - Eye Exam Eye Exam: EOMI - ENT Exam ENT Exam: Mucous Membranes Moist - GI/Abdominal Exam GI & Abdominal Exam: Soft, Tenderness (appropriate tenderness at surgical site. 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 Medicine consulted for medical management. 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 Melgar inserted draining yellow/clear urine. -management as per Urology, Dr. Leslie -Dilaudid CONTINUOUS MINER OPERATOR as per anesthesiology Hx of HTN -Metoprolol Succinate 25mg daily Acute on Chronic Renal Insufficiency -BUN Cr: 59/2.9 with similar values in chart records since 08/2018; previously Cr 1.5 in 05/2016 -Nephrology, Dr. Brennan consulted, help appreciated --Amlodipine discontinued 2/2 renal insufficiency --Is and Os --Follow Creatinine --Avoid nephrotoxins Hx of CABG, Aortic valve replacement -Cardiology consulted. Help appreciated. Hx of pruritus L thigh -Follows residence leasing agent outpatient -continue hydrocortisone cream PPx DVT: hold due to recent surgery GI: not indicated Case discussed with Dr. Ramon Champagne, PGY-1 <Veto Navarro - Last Filed: 10/22/18 09:24> Objective - Vital Signs/Intake and Output Vital Signs (last 24 hours): Temp Pulse Resp BP Pulse Ox 98.0 F 75 20 167/91 H 96 10/22/18 08:31 10/22/18 08:31 10/22/18 08:31 10/22/18 08:31 10/22/18 08:31 Intake and Output: 10/22/18 10/22/18 06:59 18:59 Intake Total 600 Output Total 850 Balance -250 - Medications Medications: Current Medications Benzocaine/Menthol (Cepacol Sore Throat) 1 ivette MT Q4H PRN PRN Reason: Sore Throat Last Admin: 10/21/18 03:45 Dose: 1 ivette Docusate Sodium (Colace) 100 mg PO TID [facility] Last Admin: 10/21/18 17:16 Dose: 100 mg Hydrocortisone (Cortizone 1% Cream) 1 gm TOP BID [facility] Last Admin: 10/21/18 17:16 Dose: 1 applic Dextrose/Sodium Chloride (Dextrose 5%/0.45% Ns 1000 Ml) 1,000 mls @ 75 mls/hr IV .[id number] [facility] Last Admin: 10/22/18 01:40 Dose: 75 mls/hr Metoprolol Succinate (Toprol Xl) 25 mg PO Q24H [facility] Last Admin: 10/21/18 17:16 Dose: 25 mg Naloxone HCl (Narcan) 0.1 mg IVP Q2M PRN PRN Reason: Excess sedation Ondansetron HCl (Zofran Inj) 4 mg IVP Q8H PRN PRN Reason: Nausea/Vomiting Last Admin: 10/22/18 01:48 Dose: 4 mg Oxycodone/Acetaminophen (Percocet 5/325 Mg Tab) 1 tab PO Q4H PRN PRN Reason: Pain, moderate (4-7) Stop: 10/24/18 08:47 Last Admin: 10/22/18 07:48 Dose: 1 tab - Labs Labs: 10/22/18 08:15 10/22/18 08:15 Attending/Attestation - Attestation I have personally seen and examined this patient.: Yes I have fully participated in the care of the patient.: Yes I have reviewed all pertinent clinical information, including history, physical exam and plan: Yes Notes (Text): seen and examined,no complain,urine clear,Patient will be discharge to rehab continue pain meds,creatinine is coming down we will follow with dr carlos
[2018-10-21] MEDS: Metoprolol Succinate 25 mg XL Tab PO SCH (17:16)
[2018-10-21] MEDS ORDERED: Dextrose 5%/0.45% NS 1,000 ML IV SCH (17:26)
--- NOTE | 2018-10-21 23:45 | PCM.URO ---
Urology Progress Note - General General: Tolerating Diet - Subjective Abdominal Pain: Yes Flank Pain: No Nausea: No Vomiting: No Dysuria: No Hematuria: No Dsypnea: No Chest Pain: No Fever & Chills: No - Objective Lab Studies: Reviewed Lab Results Last 24 Hours: Laboratory Results - last 24 hr 10/21/18 10/21/18 07:17 07:17 WBC 7.5 RBC 2.32 L Hgb 8.4 L Hct 24.8 L MCV 107.0 H MCH 36.1 H MCHC 33.7 RDW 12.8 Plt Count 119 L D MPV 8.1 Differential Comment Sodium 133 Potassium 4.7 Chloride 104 Carbon Dioxide 20 L Anion Gap 13 BUN 28 H Creatinine 2.7 H Est GFR ( Amer) 27 Est GFR (Non-Af Amer) 23 Random Glucose 120 H Calcium 8.4 L Phosphorus 3.5 Magnesium 1.6 Total Bilirubin 0.5 AST 21 ALT 21 Alkaline Phosphatase 41 Total Protein 5.0 L Albumin 2.7 L Globulin 2.3 Albumin/Globulin Ratio 1.2 Intake & Output: Intake & Output 10/21/18 10/21/18 10/22/18 06:59 18:59 06:59 Intake Total 800 Output Total 770 Balance 30 Intake: Intake, IV Amount 800 Right Forearm 800 Output: Drainage 20 Left Lower Anterior 20 Abdomen Urine 750 Urethral (Melgar) 750 Vital Signs: Vital Signs - 24 hr 10/21/18 10/21/18 10/21/18 01:00 07:30 08:10 Temperature 98.2 F Pulse Rate 68 68 79 Respiratory 20 Rate Blood Pressure 165/80 H O2 Sat by Pulse 97 Oximetry 10/21/18 10/21/18 15:10 16:00 Temperature 98.0 F Pulse Rate 72 72 Respiratory 20 Rate Blood Pressure 144/77 O2 Sat by Pulse 96 Oximetry - Physical Exam Abdominal Exam: Soft, Non-Distended Bowel Sounds: Normal (s) Wound: Clean, Healing Well Dressing: Dry, Intact Back: No CVA Tenderness Genitalia: Without Inflammation Urinary Catheter Draining Well: Yes Urine Color: Clear, Yellow Extremities: Normal: Bilateral - Male Phallus: Normal Scrotum: Normal - Plan Pulmonary Toilet: Yes Discontinue Drain: Yes Catheter Care: Yes Ambulation - Out of Bed: Yes Intake & Output: Yes See Orders: Yes Additional Information: IMP: Azotemia. Anemia. Cardiac and renal disease, consultations appreciated. stable p nephroureterectomy. P: rec. increase ac tivity. YADIRA drain removed. discussed w pt and nursing staff. physcial therapy. dischagre planning re rehab facility - Date & Time of Note Date: 10/21/18 Time: 09:35
[2018-10-22] MEDS: Oxycodone/Acetaminophen 5/325 mg Tab PO PRN ×3 (01:43→19:57)
--- NOTE | 2018-10-22 07:07 | CP.PCM.PN ---
<Jesús Champagne - Last Filed: 10/22/18 12:56> Subjective - Date & Time of Evaluation Date of Evaluation: 10/22/18 Time of Evaluation: 09:00 - Subjective Subjective: PGY-[address] Navarro Patient seen and examined at bedside. No acute events overnight. Having pain post-op, with FRAME ALIGNER pump. Solid diet - tolerated fruit this AM. No BMs since surgery, but passing flatus. Out of bed to chair yesterday. No PT yesterday 2/2 pain. Patient denies chest pain, dizziness, headache, numbness, tingling. Spoke with patient regarding importance of getting out of his chair and moving around so that he can improve his functioning and heal. Nursing asked to please encourage patient mobility in addition to daily PT. Objective - Vital Signs/Intake and Output Vital Signs (last 24 hours): Temp Pulse Resp BP Pulse Ox 98.0 F 92 H 20 153/84 H 97 10/21/18 23:35 10/22/18 01:00 10/21/18 23:35 10/21/18 23:35 10/21/18 23:35 Intake and Output: 10/22/18 10/22/18 06:59 18:59 Intake Total 600 Output Total 850 Balance -250 - Medications Medications: Current Medications Benzocaine/Menthol (Cepacol Sore Throat) 1 ivette MT Q4H PRN PRN Reason: Sore Throat Last Admin: 10/21/18 03:45 Dose: 1 ivette Docusate Sodium (Colace) 100 mg PO TID [facility] Last Admin: 10/21/18 17:16 Dose: 100 mg Hydrocortisone (Cortizone 1% Cream) 1 gm TOP BID [facility] Last Admin: 10/21/18 17:16 Dose: 1 applic Dextrose/Sodium Chloride (Dextrose 5%/0.45% Ns 1000 Ml) 1,000 mls @ 75 mls/hr IV .[id number] [facility] Last Admin: 10/22/18 01:40 Dose: 75 mls/hr Metoprolol Succinate (Toprol Xl) 25 mg PO Q24H [facility] Last Admin: 10/21/18 17:16 Dose: 25 mg Naloxone HCl (Narcan) 0.1 mg IVP Q2M PRN PRN Reason: Excess sedation Ondansetron HCl (Zofran Inj) 4 mg IVP Q8H PRN PRN Reason: Nausea/Vomiting Last Admin: 10/22/18 01:48 Dose: 4 mg Oxycodone/Acetaminophen (Percocet 5/325 Mg Tab) 1 tab PO Q4H PRN PRN Reason: Pain, moderate (4-7) Stop: 10/24/18 08:47 Last Admin: 10/22/18 01:43 Dose: 1 tab - Labs Labs: 10/21/18 07:17 10/21/18 07:17 - Constitutional Appears: Non-toxic, No Acute Distress - Head Exam Head Exam: ATRAUMATIC, NORMOCEPHALIC - Eye Exam Eye Exam: EOMI - ENT Exam ENT Exam: Mucous Membranes Moist - Respiratory Exam Respiratory Exam: Clear to Ausculation Bilateral, NORMAL BREATHING PATTERN - Cardiovascular Exam Cardiovascular Exam: REGULAR RHYTHM, +S1, +S2 - GI/Abdominal Exam GI & Abdominal Exam: Soft, Tenderness (post-surgical tenderness at surgical site) Additional comments: dressings c/d/i - Extremities Exam Extremities Exam: absent: Pedal Edema, Tenderness - Neurological Exam Neurological Exam: Alert, Awake, Oriented x3 - Skin Skin Exam: Dry, Intact Assessment and Plan - Assessment and Plan (Free Text) Assessment: Patient with PMHx of HTN, renal insufficiency, prostate cancer, bladder cancer, 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 Medicine consulted for medical management. 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 Melgar inserted draining yellow/clear urine. -management as per Urology, Dr. Leslie -Dilaudid FRAME ALIGNER as per anesthesiology Post-op Deconditioning -Patient having difficulty with PT 2/2 pain. Was OOBTC yesterday -Continue PT -Encourage ISS -D/c to [facility] once cleared by Urology Hx of HTN -Metoprolol Succinate 25mg daily Acute on Chronic Renal Insufficiency -BUN Cr: 59/2.9 with similar values in chart records since 08/2018; previously Cr 1.5 in 05/2016 -Nephrology, Dr. Brennan consulted, help appreciated --Amlodipine discontinued 2/2 renal insufficiency --Is and Os --Follow Creatinine --Avoid nephrotoxins Hx of CABG, Aortic valve replacement -Cardiology consulted. Help appreciated. Hx of pruritus L thigh -Follows asset protection detective outpatient -continue hydrocortisone cream PPx DVT: hold due to recent surgery GI: not indicated Chronic medical conditions controlled, no acute medical management necessary at this time. Medicine team signing off case. Re-consult as needed. Thank you. Case discussed with Dr. Ramon Champagne, PGY-1 <Veto Navarro - Last Filed: 10/23/18 15:26> Objective - Vital Signs/Intake and Output Vital Signs (last 24 hours): Temp Pulse Resp BP Pulse Ox 98.8 F 66 20 167/85 H 98 10/23/18 08:51 10/23/18 08:51 10/23/18 08:51 10/23/18 08:51 10/23/18 08:51 Intake and Output: 10/23/18 10/23/18 06:59 18:59 Intake Total 1050 Output Total 1300 Balance -250 - Medications Medications: Current Medications Benzocaine/Menthol (Cepacol Sore Throat) 1 ivette MT Q4H PRN PRN Reason: Sore Throat Last Admin: 10/21/18 03:45 Dose: 1 ivette Docusate Sodium (Colace) 100 mg PO TID [facility] Last Admin: 10/23/18 14:19 Dose: 100 mg Hydrocortisone (Cortizone 1% Cream) 1 gm TOP BID [facility] Last Admin: 10/23/18 11:00 Dose: 1 applic Dextrose/Sodium Chloride (Dextrose 5%/0.45% Ns 1000 Ml) 1,000 mls @ 50 mls/hr IV .Q20H [facility] Last Admin: 10/23/18 11:00 Dose: Not Given Metoprolol Succinate (Toprol Xl) 50 mg PO Q24H [facility] Last Admin: 10/23/18 10:58 Dose: 50 mg Naloxone HCl (Narcan) 0.1 mg IVP Q2M PRN PRN Reason: Excess sedation Ondansetron HCl (Zofran Inj) 4 mg IVP Q8H PRN PRN Reason: Nausea/Vomiting Last Admin: 10/23/18 03:15 Dose: 4 mg Oxycodone/Acetaminophen (Percocet 5/325 Mg Tab) 1 tab PO Q4H PRN PRN Reason: Pain, moderate (4-7) Stop: 10/24/18 08:47 Last Admin: 10/23/18 06:25 Dose: 1 tab - Labs Labs: 10/23/18 07:32 10/23/18 07:32 Attending/Attestation - Attestation I have personally seen and examined this patient.: Yes I have fully participated in the care of the patient.: Yes I have reviewed all pertinent clinical information, including history, physical exam and plan: Yes Notes (Text): seen and examined by me. Patient is c/o itchy skin and asking for hydrocortisone topical. Patient is doing good after surgery. plaaning to discharge to rehab we will sign off from our service Patient will follow his urologist,nephrology and primary care after discharge
[2018-10-22 08:24] LABS: HEMOGLOBIN 8.6 g/dL (12.0-18.0); MEAN CELL VOLUME 105.5 fL (80.0-94.0); MEAN CORPUSCULAR HEMOGLOBIN 36.5 pg (27.0-31.0); MEAN CORPUSCULAR HGB CONC 34.6 g/dL (33.0-37.0); MEAN PLATELET VOLUME 7.8 fL (7.2-11.7); RBC 2.35 Mil/uL (4.40-5.90); RED CELL DISTRIBUTION WIDTH 12.6 % (11.5-14.5); WHITE BLOOD COUNT 10.4 K/uL (4.8-10.8)
[2018-10-22 08:38] LABS: ALB/GLOB RATIO 1.1 (1.0-2.1); ALBUMIN 2.8 g/dL (3.5-5.0); CALCIUM 8.6 mg/dl (8.6-10.4)
[2018-10-22] MEDS: Hydrocortisone 1% Cream (30 GM) TOP SCH ×2 (09:57→19:00)
[2018-10-22] MEDS: Metoprolol Succinate 50 mg XL Tab PO SCH (12:19)
--- NOTE | 2018-10-22 14:04 | CP.PCM.PN ---
Subjective - Date & Time of Evaluation Date of Evaluation: 10/22/18 Time of Evaluation: 14:02 - Subjective Subjective: in bed complaints of pain not eaten much today got out of bed this morning on if fluids no SOB clear urine in weiner bag ROS- as per HPI, other than that 10 point ROS negative Objective - Vital Signs/Intake and Output Vital Signs (last 24 hours): Temp Pulse Resp BP Pulse Ox 98.0 F 75 20 167/91 H 96 10/22/18 08:31 10/22/18 08:31 10/22/18 08:31 10/22/18 08:31 10/22/18 08:31 Intake and Output: 10/22/18 10/22/18 06:59 18:59 Intake Total 600 Output Total 850 Balance -250 - Medications Medications: Current Medications Benzocaine/Menthol (Cepacol Sore Throat) 1 ivette MT Q4H PRN PRN Reason: Sore Throat Last Admin: 10/21/18 03:45 Dose: 1 ivette Docusate Sodium (Colace) 100 mg PO TID [facility] Last Admin: 10/22/18 09:57 Dose: 100 mg Hydrocortisone (Cortizone 1% Cream) 1 gm TOP BID [facility] Last Admin: 10/22/18 09:57 Dose: 1 applic Dextrose/Sodium Chloride (Dextrose 5%/0.45% Ns 1000 Ml) 1,000 mls @ 75 mls/hr IV .[id number] [facility] Last Admin: 10/22/18 01:40 Dose: 75 mls/hr Metoprolol Succinate (Toprol Xl) 50 mg PO Q24H [facility] Last Admin: 10/22/18 12:19 Dose: 50 mg Naloxone HCl (Narcan) 0.1 mg IVP Q2M PRN PRN Reason: Excess sedation Ondansetron HCl (Zofran Inj) 4 mg IVP Q8H PRN PRN Reason: Nausea/Vomiting Last Admin: 10/22/18 01:48 Dose: 4 mg Oxycodone/Acetaminophen (Percocet 5/325 Mg Tab) 1 tab PO Q4H PRN PRN Reason: Pain, moderate (4-7) Stop: 10/24/18 08:47 Last Admin: 10/22/18 07:48 Dose: 1 tab - Labs Labs: 10/22/18 08:15 10/22/18 08:15 - Constitutional Appears: Well, Non-toxic - Head Exam Head Exam: ATRAUMATIC, NORMOCEPHALIC - Eye Exam Eye Exam: EOMI, PERRL - ENT Exam ENT Exam: Mucous Membranes Moist - Neck Exam Neck Exam: Full ROM - Respiratory Exam Respiratory Exam: Clear to Ausculation Bilateral. absent: Rhonchi, Wheezes - Cardiovascular Exam Cardiovascular Exam: REGULAR RHYTHM, +S1, +S2 - GI/Abdominal Exam GI & Abdominal Exam: Distended, Soft. absent: Tenderness - Extremities Exam Extremities Exam: Full ROM. absent: Pedal Edema - Neurological Exam Neurological Exam: Alert, Awake, Oriented x3 - Psychiatric Exam Psychiatric exam: Normal Affect, Normal Mood - Skin Skin Exam: Normal Color, Warm Assessment and Plan (1) Anemia Status: Acute (2) Chronic kidney disease Status: Acute (3) History of nephrectomy, left Status: Acute (4) History of bladder cancer Status: Acute - Assessment and Plan (Free Text) Plan: Cr improved and stable cut back on iv fluids to 50 cc/hr encourage po intake pain control monitor BP
[2018-10-22] MEDS: Dextrose 5%/0.45% NS 1,000 ML IV SCH (14:15)
[2018-10-23] MEDS: Oxycodone/Acetaminophen 5/325 mg Tab PO PRN ×3 (00:34→20:41)
[2018-10-23] MEDS: Dextrose 5%/0.45% NS 1,000 ML IV SCH ×2 (06:26→11:00)
[2018-10-23 07:40] LABS: HEMOGLOBIN 8.8 g/dL (12.0-18.0); MEAN CELL VOLUME 104.1 fL (80.0-94.0); MEAN CORPUSCULAR HEMOGLOBIN 36.2 pg (27.0-31.0); MEAN CORPUSCULAR HGB CONC 34.8 g/dL (33.0-37.0); MEAN PLATELET VOLUME 7.9 fL (7.2-11.7); RBC 2.42 Mil/uL (4.40-5.90); RED CELL DISTRIBUTION WIDTH 12.8 % (11.5-14.5); WHITE BLOOD COUNT 8.1 K/uL (4.8-10.8)
[2018-10-23 07:54] LABS: ALB/GLOB RATIO 1.1 (1.0-2.1); ALBUMIN 2.9 g/dL (3.5-5.0); CALCIUM 8.7 mg/dl (8.6-10.4)
[2018-10-23] MEDS: Metoprolol Succinate 50 mg XL Tab PO SCH (10:58)
[2018-10-23] MEDS: Hydrocortisone 1% Cream (30 GM) TOP SCH ×2 (11:00→17:24)
--- NOTE | 2018-10-23 11:17 | CP.PCM.PN ---
Subjective - Date & Time of Evaluation Date of Evaluation: 10/23/18 Time of Evaluation: 11:14 - Subjective Subjective: Notes reviewed Remains in bed Nausea this am Reports no bm Appetite not good Pain controlled today ROS- as per HPI, other than that 10 point ROS negative Objective - Vital Signs/Intake and Output Vital Signs (last 24 hours): Temp Pulse Resp BP Pulse Ox 98.8 F 66 20 167/85 H 98 10/23/18 08:51 10/23/18 08:51 10/23/18 08:51 10/23/18 08:51 10/23/18 08:51 Intake and Output: 10/23/18 10/23/18 06:59 18:59 Intake Total 1050 Output Total 1300 Balance -250 - Medications Medications: Current Medications Benzocaine/Menthol (Cepacol Sore Throat) 1 ivette MT Q4H PRN PRN Reason: Sore Throat Last Admin: 10/21/18 03:45 Dose: 1 ivette Docusate Sodium (Colace) 100 mg PO TID [facility] Last Admin: 10/23/18 10:59 Dose: 100 mg Hydrocortisone (Cortizone 1% Cream) 1 gm TOP BID [facility] Last Admin: 10/23/18 11:00 Dose: 1 applic Dextrose/Sodium Chloride (Dextrose 5%/0.45% Ns 1000 Ml) 1,000 mls @ 50 mls/hr IV .Q20H [facility] Last Admin: 10/23/18 11:00 Dose: Not Given Metoprolol Succinate (Toprol Xl) 50 mg PO Q24H [facility] Last Admin: 10/23/18 10:58 Dose: 50 mg Naloxone HCl (Narcan) 0.1 mg IVP Q2M PRN PRN Reason: Excess sedation Ondansetron HCl (Zofran Inj) 4 mg IVP Q8H PRN PRN Reason: Nausea/Vomiting Last Admin: 10/23/18 03:15 Dose: 4 mg Oxycodone/Acetaminophen (Percocet 5/325 Mg Tab) 1 tab PO Q4H PRN PRN Reason: Pain, moderate (4-7) Stop: 10/24/18 08:47 Last Admin: 10/23/18 06:25 Dose: 1 tab - Labs Labs: 10/23/18 07:32 10/23/18 07:32 - Constitutional Appears: Non-toxic, Chronically Ill - Eye Exam Eye Exam: EOMI, Normal appearance - ENT Exam ENT Exam: Mucous Membranes Moist, Normal Oropharynx - Neck Exam Neck Exam: absent: Lymphadenopathy, Thyromegaly - Respiratory Exam Respiratory Exam: NORMAL BREATHING PATTERN. absent: Rales, Rhonchi, Wheezes - Cardiovascular Exam Cardiovascular Exam: +S1, +S2. absent: Rubs - GI/Abdominal Exam GI & Abdominal Exam: Soft, Normal Bowel Sounds - Extremities Exam Extremities Exam: Pedal Edema. absent: Tenderness - Neurological Exam Neurological Exam: Alert, Awake, Oriented x3 - Psychiatric Exam Psychiatric exam: Normal Affect, Normal Mood - Skin Skin Exam: Dry, Warm Assessment and Plan (1) Acute kidney failure Status: Acute (2) Chronic kidney disease Status: Acute (3) Anemia Status: Acute (4) Hypotension after procedure Status: Acute (5) History of nephrectomy, left Status: Acute (6) Kidney mass Status: Acute - Assessment and Plan (Free Text) Assessment: YUE on CKD resolving Electrolytes acceptable Bp controlled Suggest laxative for constipation PT Encourage oral intake Continue current care
[2018-10-24 00:03] VITALS: BP 163/70; PULSE 71; TEMP 98.7; O2SAT 95
--- NOTE | 2018-10-25 23:45 | PCM.URO ---
Urology Progress Note - General General: Tolerating Diet - Subjective Abdominal Pain: No Flank Pain: No Nausea: No Vomiting: No Voiding Well: No Hematuria: No Good Stream: No Dsypnea: No Chest Pain: No Fever & Chills: No Other: Had BM. Taking well po - Objective Lab Studies: Reviewed - Physical Exam Abdominal Exam: Soft, Non-Tender, Non-Distended Bowel Sounds: Normal Wound: Clean, Healing Well Back: No CVA Tenderness Genitalia: Without Inflammation Urinary Catheter Draining Well: Yes Urine Color: Clear, Yellow Extremities: Normal: Bilateral - Male Phallus: Normal Scrotum: Normal - Plan Wound Care: Yes Catheter Care: Yes Ambulation - Out of Bed: Yes Intake & Output: Yes See Orders: Yes Additional Information: IMP: progressing well overall. stable renal function. anemia. Rec/P: Discharge today. Pt prefer rehab. Wound care. cath care. Outpt fu re catheter removal and. skin staple removal. Pathology -pending. Discussed w pt. Discussed w nursing and discharge planning staff - Date & Time of Note Date: 10/23/18 Time: 11:50
--- NOTE | 2018-10-26 03:11 | PN ---
DATE: 10/22/2018 UROLOGY DAILY PROGRESS NOTE See the history and physical and operative note. The patient is resting comfortably. Generalized aches and pains. No chest pain or shortness of breath otherwise. Some abdominal discomfort. within normal limits. On physical exam, the abdomen is relatively full. There is no real rebound. The remainder of the exam is otherwise unremarkable. The urology plan is as follows: Routine postoperative care. The patient is to use his incentive spirometer as much as possible and encouraged the patient to use his incentive spirometer as much as possible and also to ambulate as much as possible. Further plans will follow. The patient remains stable. Helder Capellan MD
== END 2018-10-23 23:55 | DRG 654 ==
LOC: C.9S 05:38 → C.6T 14:16 → C.5S 10-20 14:30 → C.6T 10-20 14:36
PROVIDERS: ADMIT Urology; ATTEND Urology
PROC: 0TT14ZZ Resection of Left Kidney, Percutaneous Endoscopic Approach (ICD-10-PCS; 2018-10-19)
PROC: 0TT74ZZ Resection of Left Ureter, Percutaneous Endoscopic Approach (ICD-10-PCS; 2018-10-19)
PROC: 0TQB4ZZ Repair Bladder, Percutaneous Endoscopic Approach (ICD-10-PCS; principal; 2018-10-19 07:45)
DX: C64.9 Malignant neoplasm of unspecified kidney, except renal pelvis (principal); N17.9 Acute kidney failure, unspecified; L29.9 Pruritus, unspecified; Z85.51 Personal history of malignant neoplasm of bladder; Z85.46 Personal history of malignant neoplasm of prostate; D64.9 Anemia, unspecified; Z87.891 Personal history of nicotine dependence; I95.81 Postprocedural hypotension; Z95.2 Presence of prosthetic heart valve; N18.9 Chronic kidney disease, unspecified; I12.9 Hypertensive chronic kidney disease with stage 1 through stage 4 chronic kidney disease, or unspecified chronic kidney disease; I25.10 Atherosclerotic heart disease of native coronary artery without angina pectoris; E78.00 Pure hypercholesterolemia, unspecified; Z95.1 Presence of aortocoronary bypass graft; Z90.49 Acquired absence of other specified parts of digestive tract